=== PATIENT | male | born 1935 | race Hispanic/Latino ===

== ENCOUNTER 2018-09-17 07:11 | Outpatient (CLI) | payer MEDICARE, OTHER | END 2018-09-17 07:12 | disposition home or self-care (01) | LOC: LAB 07:11 ==

== ENCOUNTER 2018-10-21 12:46 | Inpatient (IN) | payer MEDICARE, OTHER ==
[2018-10-21 13:12] VITALS: BMI 33.5
--- NOTE | 2018-10-21 13:55 | ED PDOC ---
Arrival/HPI <Heidy Velasquez - Last Filed: 10/21/18 15:57> - General Historian: Patient - History of Present Illness Narrative History of Present Illness (Text): 10/21/18 13:49 83M pmh CAD s/p CABG, CKD, HTN, Hypothyroidism, R sided heart failure, c/o chest pain + lethargy worsening x3 days. Patient reported mid sternal squeezing chest pain which began 3 days ago. Patient denies any radiation into his L arm or neck; no associated SOB, MCCARTHY. Patient denies worsening of symptoms w/ exertion.. Patient does complain of associated lethargy which has been worsening over the past 3 days as well. Previous Echo was done in 2016 which showed normal EF severe TR, R sided HF, Pulm HTN, . Allergies: NKDA PMH: as above PSH: CABG 2008 Social: Former smoker quit 40 years ago, denies etoh, illicit drug use Home Rx updated in chart Time/Duration: Prior to Arrival, < week Symptom Onset: Gradual Symptom Course: Worsening Quality: Pressure Context: Home <Femi Skinner - Last Filed: 10/21/18 16:35> - General Chief Complaint: Chest Pain Time Seen by Provider: 10/21/18 13:15 Past Medical History - Provider Review Nursing Documentation Reviewed: Yes - Infectious Disease Hx of Infectious Diseases: None - Tetanus Immunization Tetanus Immunization: Unknown - Cardiac Hx Cardiac Arrhythmia: Yes Hx Congestive Heart Failure: Yes Hx Hypertension: Yes - Endocrine/Metabolic Hx Hypothyroidism: Yes - Musculoskeletal/Rheumatological Hx Arthritis: Yes Hx Falls: No - Psychiatric Hx Psychophysiologic Disorder: No Hx Anxiety: No Hx Bipolar Disorder: No Hx Depression: No Hx Emotional Abuse: No Hx Hallucinations: No Hx Panic Disorder: No Hx Post Traumatic Stress Disorder: No Hx Psychosis: No Hx Physical Abuse: No Hx Schizophrenia: No Hx Sexual Abuse: No Hx Substance Use: No - Surgical History Hx Coronary Artery Bypass Graft: Yes - Anesthesia Hx Anesthesia: Yes Hx Anesthesia Reactions: No Hx Malignant Hyperthermia: No - Suicidal Assessment Feels Threatened In Home Enviroment: No <Femi Skinner - Last Filed: 10/21/18 16:35> Family/Social History - Physician Review Nursing Documentation Reviewed: Yes Family/Social History: Unknown Family HX Smoking Status: Former Smoker Hx Alcohol Use: No Hx Substance Use: No <Femi Skinner - Last Filed: 10/21/18 16:35> Allergies/Home Meds <Heidy Velasquez - Last Filed: 10/21/18 15:57> <Femi Skinner - Last Filed: 10/21/18 16:35> Allergies/Adverse Reactions: Allergies No Known Allergies Allergy (Verified 10/21/18 13:12) Home Medications: Home Meds Medication Instructions Recorded Confirmed Aspirin [Aspir 81] 162 mg PO DAILY 09/27/12 10/21/18 Amiodarone [Cordarone] 200 mg PO DAILY 09/16/15 10/21/18 hydrALAZINE [Apresoline] 25 mg PO BID 09/16/15 10/21/18 Finasteride [Proscar] 5 mg PO DAILY 10/21/18 10/21/18 Furosemide [Lasix] 20 mg PO BID 10/21/18 10/21/18 Levothyroxine [Synthroid] 137 mcg PO ACB 10/21/18 10/21/18 Losartan Potassium [Cozaar] 100 mg PO DAILY 10/21/18 10/21/18 Metoprolol Succinate [Toprol Xl] 25 mg PO DAILY 10/21/18 10/21/18 Simvastatin [Zocor] 40 mg PO HS 10/21/18 10/21/18 Tamsulosin HCl [Flomax] 0.4 mg PO DAILY 10/21/18 10/21/18 amLODIPine [Norvasc] 10 mg PO DAILY 10/21/18 10/21/18 metOLazone [Zaroxolyn] 5 mg PO DAILY 10/21/18 10/21/18 Review of Systems - Physician Review All systems were reviewed & negative as marked: Yes - Review of Systems Constitutional: Fatigue Eyes: Normal ENT: Normal Respiratory: Normal Cardiovascular: Chest Pain. absent: MCCARHTY Gastrointestinal: absent: Abdominal Pain, Nausea Genitourinary Male: Normal Musculoskeletal: Normal Skin: Normal Neurological: Normal Endocrine: Normal Hemo/Lymphatic: Normal Psychiatric: Normal <Femi Skinner - Last Filed: 10/21/18 16:35> Physical Exam Vital Signs Temp Pulse Resp BP Pulse Ox 10/21/18 13:08 98.2 F 62 18 137/81 98 <Heidy Velasquez - Last Filed: 10/21/18 15:57> Vital Signs Reviewed: Yes Vital Signs Temp Pulse Resp BP Pulse Ox 10/21/18 13:08 98.2 F 62 18 137/81 98 Temperature: Afebrile Blood Pressure: Normal Pulse: Regular Respiratory Rate: Normal Appearance: Positive for: Well-Appearing, Non-Toxic, Comfortable Pain Distress: None Mental Status: Positive for: Alert and Oriented X 3 - Systems Exam Head: Present: Atraumatic, Normocephalic Pupils: Present: PERRL Extroacular Muscles: Present: EOMI Conjunctiva: Present: Normal Respiratory/Chest: Present: Clear to Auscultation. No: Respiratory Distress Cardiovascular: Present: Regular Rate and Rhythm, Murmurs (), Normal S1, S2 Abdomen: Present: Normal Bowel Sounds. No: Tenderness, Distention Lower Extremity: Present: Edema (3+ Pitting BL ) Neurological: Present: GCS=15, CN II-XII Intact Skin: Present: Warm, Dry, Normal Color Psychiatric: Present: Alert, Oriented x 3 <Femi Skinner - Last Filed: 10/21/18 16:35> Medical Decision Making ED Course and Treatment: 10/21/18 15:57 Patient Seen with Resident: In agreement with resident note which contains more details about the patient. Patient seen and evaluated with resident. Came up with plan and treatment together. Impression: Patient is a 83 year old male complaining of chest pain and fatigue, which started 3 days ago. Plan: -- EKG -- Chest X-ray -- Cardiac enzymes -- Labs -- Blood work -- TSH - Lab Interpretations Lab Results: Troponin I < 0.01 ng/mL D 10/21/18 13:48 NT-Pro-B Natriuret Pep 849 pg/mL (0-450) H 10/21/18 13:48 Total Bilirubin 0.3 mg/dL (0.2-1.3) 10/21/18 13:48 AST 37 U/L (17-59) 10/21/18 13:48 ALT 30 U/L (7-56) 10/21/18 13:48 Alkaline Phosphatase 79 U/L (38-126) 10/21/18 13:48 Total Protein 6.9 g/dL (5.8-8.3) 10/21/18 13:48 Albumin 4.0 g/dL (3.0-4.8) 10/21/18 13:48 Globulin 3.0 gm/dL 10/21/18 13:48 Albumin/Globulin Ratio 1.3 (1.1-1.8) 10/21/18 13:48 - RAD Interpretation Radiology Orders: 10/21/18 13:49 CHEST PORTABLE [RAD] Stat <Heidy Velasquez - Last Filed: 10/21/18 15:57> ED Course and Treatment: 10/21/18 13:51 EKG w/ No ST/T wave abnormalities CXR CBC/CMP TROP TSH LIPID A1C Cardiology Consulted Dr. Gagnon 10/21/18 15:48 Hb 7.2 Trop wnl FOBT+, Melanotic stool TSH elevated BNP elevated will admit to Dr. Han's service for symptomatic anemia in a cardiac patient w/ active GI bleed 10/21/18 15:55 Left message w/ Dr. Han answering service 10/21/18 16:[address] Han who accepts admission; Dr. Han requesting BL LE Duplex, Type and Cross, Transfusion consent, and 10/21/18 16:35 - Lab Interpretations I have reviewed the lab results: Yes - RAD Interpretation Narrative RAD Interpretations (Text): 10/21/18 15:49 No acute cardiopulmonary disease; moderate cardiomegaly Radiology Orders: 10/21/18 13:49 CHEST PORTABLE [RAD] Stat Fixed Assets Accountant: Radiologist - EKG Interpretation EKG Interpretation (Text): 10/21/18 15:49 NSR no AV block HR 66/min Interpreted by ED Physician: Yes Type: 12 lead EKG <Femi Skinner - Last Filed: 10/21/18 16:35> - Scribe Statement The provider has reviewed the documentation as recorded by the Scribe Mark Campbell Provider Scribe Attestation: All medical record entries made by the Scribe were at my direction and personally dictated by me. I have reviewed the chart and agree that the record accurately reflects my personal performance of the history, physical exam, medical decision making, and the department course for this patient. I have also personally directed, reviewed, and agree with the discharge instructions and disposition. <Heidy Velasquez - Last Filed: 10/21/18 15:57> Disposition/Present on Arrival <Heidy Velasquez - Last Filed: 10/21/18 15:57> - Present on Arrival Any Indicators Present on Arrival: No History of DVT/PE: No History of Uncontrolled Diabetes: No Urinary Catheter: No History of Decub. Ulcer: No History Surgical Site Infection Following: None - Disposition Have Diagnosis and Disposition been Completed?: Yes Disposition Time: 15:56 Patient Plan: Admission, Telemetry <Femi Skinner - Last Filed: 10/21/18 16:35> - Disposition Diagnosis: Symptomatic anemia, GI bleed, Right-sided heart failure Patient Problems: Current Active Problems Problem Status Onset Symptomatic anemia Acute GI bleed Acute Right-sided heart failure Acute Condition: STABLE Forms: [employer] (Faroese)
[2018-10-21 14:11] LABS: BASO # 0.02 K/mm3 (0.0-2.0); BASO % 0.2 % (0.0-3.0); EOS % 0.3 % (1.5-5.0); HEMOGLOBIN 7.2 g/dL (14.0-18.0); LYMPH # 1.2 (1.2-3.4); LYMPH % 10.6 % (22.0-35.0); MEAN CELL VOLUME 93.5 fl (80.0-105.0); MEAN CORPUSCULAR HEMOGLOBIN 31.2 pg (25.0-35.0); MEAN CORPUSCULAR HGB CONC 33.3 g/dl (31.0-37.0); MEAN PLATELET VOLUME 9.4 fl (7.0-11.0); MONO # 1.4 (0.1-0.6); MONO % 12.1 % (1.0-6.0); RBC 2.31 10^6/uL (3.5-6.1); RED CELL DISTRIBUTION WIDTH 15.5 % (11.5-14.5); WHITE BLOOD COUNT 11.5 10^3/uL (4.5-11.0)
[2018-10-21 14:16] LABS: ALB/GLOB RATIO 1.3 (1.1-1.8); ALT/SGPT 30 U/L (7-56); AST/SGOT 37 U/L (17-59); BLOOD UREA NITROGEN 50 mg/dL (7-21); CALCIUM 8.7 mg/dL (8.4-10.5); GFR NON-AFRICAN AMERICAN 26; HDL CHOLESTEROL 44 mg/dL (29-60)
--- NOTE | 2018-10-21 14:26 | RAD ---
Date of service: 10/21/2018 HISTORY: chest pain COMPARISON: 09/16/2015 FINDINGS: LUNGS: No active pulmonary disease. PLEURA: No significant pleural effusion identified, no pneumothorax apparent. CARDIOVASCULAR: Aortic calcification Moderate cardiomegaly no pulmonary vascular congestion. OSSEOUS STRUCTURES: Sternal wires VISUALIZED UPPER ABDOMEN: Normal. OTHER FINDINGS: None. IMPRESSION: Moderate cardiomegaly
[2018-10-21 14:29] LABS: LDL CHOLESTEROL 46 mg/dL (0-129)
[2018-10-21 14:38] LABS: B-TYPE NATRIURETIC PEPTIDE 849 pg/mL (0-450); TROPONIN I < 0.01 ng/mL
--- NOTE | 2018-10-21 15:48 | CP.PCM.HP ---
History of Present Illness - History of Present Illness History of Present Illness: Giorgio Cavazos, PGY1 H&P for Dr. Han cc: "chest pain + weakness x3 days" Patient is a 83 y/o M with PMHx CAD s/p CABG, CKD, HTN, Hypothyroidism, CHF-pEF (EF 71% in 2016), BPH who presented to the ED for chest pain and weakness for 3 days in duration. In the ED, Vitals: Temp 98.2, HR 62, RR 18, BP 137/81, SaO2 98% (room air). Medical team evaluated patient in the ED. rug inspector was used for the patient, however, patient was refusing to use it. He is not a good historian. He said he would rather have his translate. Patient was having mid-sternal squeezing chest pain that started 3 days ago. It was not associated with exertion. Patient denied radiation of pain to the arms, neck, or back. He has no associated shortness of breath or dyspnea. Associated symptoms is weakness. Denies recent travel history. No sick contacts. He denies nausea, vomiting, diarrhea, abdominal pain, urinary frequency/urgency/dysuria, fevers, chills. A full 12 point ROS was conducted and unremarkable except as stated above. PMD: Dr. Chua PMHx: CAD s/p CABG, CKD, HTN, Hypothyroidism, CHF-pEF (EF 71% in 2016), BPH PSHx: CABG (2008) Meds: see MAR Allergies: NKDA SocialHx: Former smoker quit 40 years ago, denies etoh, illicit drug use FamHx: non-contributory Present on Admission - Present on Admission Any Indicators Present on Admission: No Review of Systems - Review of Systems All systems: reviewed and no additional remarkable complaints except (as per HPI) Past Patient History - Infectious Disease Hx of Infectious Diseases: None - Tetanus Immunizations Tetanus Immunization: Unknown - Past Medical History & Family History Past Medical History?: Yes - Past Social History Smoking Status: Former Smoker - CARDIAC Hx Cardia Arrhythmia: Yes Hx Congestive Heart Failure: Yes Hx Hypertension: Yes - ENDOCRINE/METABOLIC Hx Hypothyroidism: Yes - MUSCULOSKELETAL/RHEUMATOLOGICAL Hx Arthritis: Yes Hx Falls: No - PSYCHIATRIC Hx Psychophysiologic Disorder: No Hx Anxiety: No Hx Bipolar Disorder: No Hx Depression: No Hx Emotional Abuse: No Hx Hallucinations: No Hx Panic Symptoms: No Hx Post Traumatic Stress Disorder: No Hx Psychosis: No Hx Physical Abuse: No Hx Schizophrenia: No Hx Sexual Abuse: No Hx Substance Use: No - SURGICAL HISTORY Hx Coronary Artery Bypass Graft: Yes - ANESTHESIA Hx Anesthesia: Yes Hx Anesthesia Reactions: No Hx Malignant Hyperthermia: No Meds Allergies/Adverse Reactions: Allergies Allergy/AdvReac Type Severity Reaction Status Date / Time No Known Allergies Allergy Verified 10/21/18 13:12 Physical Exam - Constitutional Appears: No Acute Distress - Head Exam Head Exam: ATRAUMATIC, NORMAL INSPECTION, NORMOCEPHALIC - Eye Exam Eye Exam: EOMI, Normal appearance Pupil Exam: NORMAL ACCOMODATION - ENT Exam ENT Exam: Mucous Membranes Moist, Normal Exam - Respiratory Exam Respiratory Exam: Clear to Auscultation Bilateral, NORMAL BREATHING PATTERN. absent: Accessory Muscle Use, Chest Wall Tenderness, Rales, Rhonchi, Wheezes - Cardiovascular Exam Cardiovascular Exam: REGULAR RHYTHM, +S1, +S2 - GI/Abdominal Exam GI & Abdominal Exam: Normal Bowel Sounds, Soft. absent: Guarding, Rebound, Tenderness - Rectal Exam Additional comments: Melena noted on rectal exam. - Extremities Exam Extremities exam: Positive for: normal inspection, pedal pulses present. Neg ative for: calf tenderness Additional comments: +1 pitting edema bilaterally. Mild swelling of bilateral lower extremities. - Neurological Exam Neurological exam: Alert, CN II-XII Intact, Oriented x3 - Psychiatric Exam Psychiatric exam: Normal Affect, Normal Mood - Skin Skin Exam: Dry, Intact, Normal Color, Warm Results - Vital Signs Recent Vital Signs: Last Vital Signs Temp 98.2 F 10/21/18 13:08 Pulse 62 10/21/18 13:08 Resp 18 10/21/18 13:08 BP 137/81 10/21/18 13:08 Pulse Ox 98 10/21/18 13:08 - Labs Result Diagrams: 10/21/18 13:48 10/21/18 13:48 Labs: Laboratory Results - last 24 hr 10/21/18 10/21/18 10/21/18 13:48 13:48 13:48 WBC 11.5 H D RBC 2.31 L Hgb 7.2 L D Hct 21.6 L MCV 93.5 MCH 31.2 MCHC 33.3 RDW 15.5 H Plt Count 371 MPV 9.4 Neut % (Auto) 76.8 H Lymph % (Auto) 10.6 L [place] % (Auto) 12.1 H Eos % (Auto) 0.3 L Baso % (Auto) 0.2 Lymph # (Auto) 1.2 [place] # (Auto) 1.4 H Eos # (Auto) 0.0 Baso # (Auto) 0.02 Absolute Neuts (auto) 8.79 H Sodium 135 Potassium 3.9 Chloride 104 Carbon Dioxide 22 Anion Gap 12 BUN 50 H Creatinine 2.4 H Est GFR ( Amer) 32 Est GFR (Non-Af Amer) 26 Random Glucose 151 H Calcium 8.7 Phosphorus 3.8 Magnesium 2.3 H Total Bilirubin 0.3 AST 37 ALT 30 Alkaline Phosphatase 79 Troponin I < 0.01 D NT-Pro-B Natriuret Pep 849 H Total Protein 6.9 Albumin 4.0 Globulin 3.0 Albumin/Globulin Ratio 1.3 Triglycerides 81 Cholesterol 107 L LDL Cholesterol Direct 46 HDL Cholesterol 44 TSH 3rd Generation 6.34 H Assessment & Plan - Assessment and Plan (Free Text) Assessment: Patient is a 83 y/o M with PMHx CAD s/p CABG, CKD, HTN, Hypothyroidism, CHF-pEF (EF 71% in 2016), BPH who presented to the ED for chest pain and weakness for 3 days in duration. Patient admitted for chest pain - r/o ACS, Symptomatic Anemia, and MIGUEL on CKD. Plan: Chest Pain - r/o ACS - initial trop negative x1; trend q6 - EKG: NSR. No ST or T wave changes. - Cardio on consult (Dr. Gagnon) - Echo - Venous LE doppler ordered to r/o DVT - c/w ASA 81mg daily home med - serial EKG Symptomatic Anemia - r/o GI bleed - vital signs q4 - orthostatic vital signs - PTX IVP q12 - trend cbc q4 - transfuse x1 unit pRBC - CT Chest/Abdomen/Pelvis w/o contrast ordered - Hgb 7.2 on admission (baseline 10.6) - FOBT+ - Full liquid diet - coag studies - GI consulted (Dr. Wood) MIGUEL on CKD - BUN/Cr 50/2.4 (Cr baseline is 2.2) - Renal US and Bladder US; r/o obstruction - PSA level - Bladder scan q6 with straight cath - Nephro consulted (Dr. Arzate) Hx CHF-pEF - Lasix home med held at this time Hx HTN - c/w hydralazine home med - c/w metoprolol home med - Norvasc home med held at this time - Losartan home med held at this time Hx Hypothyroidism - c/w home med synthroid - TSH level 6.34 - free T4 - Total T4 ordered Hx HLD - c/w home med simvastatin Hx CAD s/p CABG - c/w aspirin daily Hx BPH - c/w flomax and finasteride home med GI ppx: ptx IV q12 Diet: full liquid Dispo: Patient should receive x1 pRBC blood transfusion. Patient should be managed on telemetry. Case was discussed and reviewed with Attending Physician, Dr. Han
[2018-10-21 17:17] LABS: INR 1.09; PARTIAL THROMBOPLASTIN TIME 30.3 Seconds (26.9-38.3); PROTHROMBIN TIME 12.1 SECONDS (9.4-12.5)
[2018-10-21 18:58] LABS: IRON 27 ug/dL (45-180)
[2018-10-21 19:07] LABS: % IRON SATURATION 8 % (20-55); TOTAL IRON BINDING CAPACITY 352 ug/dL (261-462)
[2018-10-21 19:23] LABS: FREE T4 1.73 ng/dL (0.78-2.19)
[2018-10-21 19:46] LABS: T4 8.4 ug/dL (5.5-11.0)
[2018-10-22 00:25] LABS: HEMOGLOBIN 7.8 g/dL (14.0-18.0); MEAN CELL VOLUME 92.2 fl (80.0-105.0); MEAN CORPUSCULAR HEMOGLOBIN 30.5 pg (25.0-35.0); MEAN CORPUSCULAR HGB CONC 33.1 g/dl (31.0-37.0); MEAN PLATELET VOLUME 8.6 fl (7.0-11.0); RBC 2.56 10^6/uL (3.5-6.1); RED CELL DISTRIBUTION WIDTH 16.2 % (11.5-14.5); WHITE BLOOD COUNT 11.4 10^3/uL (4.5-11.0)
[2018-10-22 07:03] LABS: HEMOGLOBIN 7.3 g/dL (14.0-18.0); MEAN CELL VOLUME 92.1 fl (80.0-105.0); MEAN CORPUSCULAR HEMOGLOBIN 30.3 pg (25.0-35.0); MEAN CORPUSCULAR HGB CONC 32.9 g/dl (31.0-37.0); MEAN PLATELET VOLUME 9.1 fl (7.0-11.0); RBC 2.41 10^6/uL (3.5-6.1); RED CELL DISTRIBUTION WIDTH 16.7 % (11.5-14.5); WHITE BLOOD COUNT 10.8 10^3/uL (4.5-11.0)
--- NOTE | 2018-10-22 07:20 | CARD ---
APPROVED REPORT Date of service: 10/21/2018 EKG Measurement Heart [id number] <Conclusion> Sinus rhythm with first degree AV block Inferior infarct, age undetermined Abnormal ECG
--- NOTE | 2018-10-22 07:26 | CARD ---
APPROVED REPORT Date of service: 10/21/2018 EKG Measurement Heart [id number] <Conclusion> Sinus rhythm with 1st degree AV block Cannot rule out Anterior infarct, age undetermined Abnormal ECG
[2018-10-22] MEDS ORDERED: Levothyroxine 100 MCG TAB PO SCH (07:30)
[2018-10-22 07:34] LABS: ALB/GLOB RATIO 1.3 (1.1-1.8); ALBUMIN 3.6 g/dL (3.0-4.8); CALCIUM 8.8 mg/dL (8.4-10.5)
[2018-10-22] MEDS: Levothyroxine 150 MCG TAB PO SCH (07:55)
[2018-10-22] MEDS ORDERED: Lactated Ringer's 1,000 ML IV SCH (08:15)
--- NOTE | 2018-10-22 08:15 | CP.PCM.PN ---
Subjective - Date & Time of Evaluation Date of Evaluation: 10/22/18 Time of Evaluation: 08:08 - Subjective Subjective: PGY-[address] Han CP resolved. Dizzy when change position. Dark stool for > 1 week. No other acute complaint per 12 pt ROS Objective - Vital Signs/Intake and Output Vital Signs (last 24 hours): Temp Pulse Resp BP Pulse Ox 97.5 F L 56 L 20 118/58 L 100 10/22/18 06:00 10/22/18 06:00 10/22/18 06:00 10/22/18 06:00 10/22/18 06:00 Intake and Output: 10/22/18 10/22/18 06:59 18:59 Intake Total 360 Balance 360 - Medications Medications: Current Medications Amiodarone HCl (Cordarone) 200 mg PO DAILY [facility] Atorvastatin Calcium (Lipitor) 20 mg PO DIN [facility] Finasteride (Proscar) 5 mg PO DAILY [facility] Hydralazine HCl (Apresoline) 25 mg PO BID [facility] Last Admin: 10/21/18 18:50 Dose: 25 mg Lactated Ringer's (Lactated Ringer's) 1,000 mls @ 75 mls/hr IV .[id number] [facility] Levothyroxine Sodium (Synthroid) 150 mcg PO ACB [facility] Last Admin: 10/22/18 07:55 Dose: 150 mcg Metoprolol Succinate (Toprol Xl) 25 mg PO DAILY [facility] Pantoprazole Sodium (Protonix Inj) 40 mg IVP Q12 [facility] Last Admin: 10/22/18 00:19 Dose: 40 mg Tamsulosin HCl (Flomax) 0.4 mg PO DAILY [facility] - Labs Labs: 10/22/18 06:30 10/22/18 06:30 PT 12.1 SECONDS (9.4-12.5) 10/21/18 17:04 INR 1.09 10/21/18 17:04 APTT 30.3 Seconds (26.9-38.3) 10/21/18 17:04 - Constitutional Appears: No Acute Distress, Other (pale) - Head Exam Head Exam: ATRAUMATIC, NORMAL INSPECTION, NORMOCEPHALIC - Eye Exam Eye Exam: EOMI, Normal appearance, PERRL. absent: Scleral icterus Pupil Exam: NORMAL ACCOMODATION - ENT Exam ENT Exam: Mucous Membranes Moist - Neck Exam Additional comments: supple - Respiratory Exam Respiratory Exam: Clear to Ausculation Bilateral, NORMAL BREATHING PATTERN. absent: Rales, Rhonchi, Wheezes - Cardiovascular Exam Cardiovascular Exam: REGULAR RHYTHM, +S1, +S2, Murmur - GI/Abdominal Exam GI & Abdominal Exam: Soft, Normal Bowel Sounds. absent: Guarding, Rigid, Tenderness, Organomegaly - Extremities Exam Extremities Exam: Normal Capillary Refill. absent: Calf Tenderness, Pedal Kuldip ma, Tenderness - Back Exam Back Exam: absent: CVA tenderness (L), CVA tenderness (R), paraspinal tenderness - Neurological Exam Neurological Exam: Alert, Awake, CN II-XII Intact, Normal Gait, Oriented x3 - Psychiatric Exam Psychiatric exam: Normal Affect, Normal Mood - Skin Skin Exam: Dry, Warm Assessment and Plan - Assessment and Plan (Free Text) Plan: Mr Cao, 83 M, with PMHx CAD s/p CABG (2009), CHF-pEF (EF 71% in 2016), HTN, CKD, hypothyroidism, BPH c/o mild substernal chest pain x 3 days and weakness. Hb found to be in 7 on admission. Dark stool recently for more than 1 week. Never seen GI doc. VSS. , Kiera ([phone]) translated. Chest Pain - r/o ACS Hx CAD s/p CABG, HLD/HTN CHF, diastolic - trops neg x 3. EKG: NSR. No ST or T wave changes. serial EKG did not show significant changes [ ] Echo - done. pending read - Venous LE doppler ordered to r/o DVT - Hold ASA for GI bleed - c/w home hydralazine, metoprolol. Hold Norvasc, Losartan, lasix due to MIGUEL Symptomatic Anemia (7 on admission, remained at 7 despite 1u rbc, 10.6 at baseline) Iron deficiency anemia GI bleed, getting 2nd bag pRBC. FOBT+ - No plan for scope today due to low Hb. Plan for endoscopy Thursday - continue to transfuse with Hb goal of 9-10 - vital signs q4. H&H q4, strict i/.o [ ] orthostatic vital signs - PTX IVP q12 - Liquid diet per GI - CT Chest/Abdomen/Pelvis w/o contrast -No acute pathology. mild to moderate pulmonary vascular congestion. trace R pleural effusion. MIGUEL on CKD - BUN/Cr 50/2.4 (Cr baseline is 2.2) - Renal US - increased echogenicity likely medical renal disease. No hydronephrosis - Bladder US - Post-void residual 39.4cc is normal but markedly increase from previous 2.49cc - PSA normal - Bladder scan q6 with straight cath PRN - Nephro consulted (Dr. Arzate) Hx Hypothyroidism - c/w home med synthroid. TSH/free T4 wnl Hx BPH - c/w flomax and finasteride home med GI ppx: ptx IV q12 Diet: NPO Consult: Carito Velázquez, Nina
--- NOTE | 2018-10-22 08:29 | CP.PCM.HP ---
History of Present Illness - History of Present Illness History of Present Illness: (covering for Dr. Han) This is an 83 year old male with history of CAD s/p CABG, chronic kidney disease, hypertension, hypothyroidism, congestive heart failure, benign prostatic hypertrophy, who presented to the Emergency Room with chest pain for about 3 days. Patient has mid-sternal squeezing chest pain with no radiation. Patient denies chest pain this morning. He also complains of weakness for about 3 days. Present on Admission - Present on Admission Any Indicators Present on Admission: No History of DVT/PE: No History of Uncontrolled Diabetes: No Urinary Catheter: No Decubitus Ulcer Present: No Review of Systems - Constitutional Constitutional: absent: Chills, Fever, Headache - Cardiovascular Cardiovascular: As Per HPI - Gastrointestinal Gastrointestinal: absent: Abdominal Pain, Nausea, Vomiting Past Patient History - Infectious Disease Hx of Infectious Diseases: None - Tetanus Immunizations Tetanus Immunization: Unknown - Past Medical History & Family History Past Medical History?: Yes - Past Social History Smoking Status: Never Smoked - CARDIAC Hx Cardiac Disorders: Yes Hx Hypercholesterolemia: Yes Other/Comment: Hypotension - PULMONARY Hx Respiratory Disorders: No - NEUROLOGICAL Hx Neurological Disorder: No - HEENT Hx HEENT Problems: No - RENAL Hx Chronic Kidney Disease: Yes - ENDOCRINE/METABOLIC Hx Endocrine Disorders: No - HEMATOLOGICAL/ONCOLOGICAL Hx Blood Disorders: No - INTEGUMENTARY Hx Dermatological Problems: No - MUSCULOSKELETAL/RHEUMATOLOGICAL Hx Musculoskeletal Disorders: No Hx Falls: No - GASTROINTESTINAL Hx Gastrointestinal Disorders: No - GENITOURINARY/GYNECOLOGICAL Hx Genitourinary Disorders: No - PSYCHIATRIC Hx Psychophysiologic Disorder: No Hx Substance Use: No - SURGICAL HISTORY Hx Surgeries: No Hx Open Heart Surgery: Yes - ANESTHESIA Hx Anesthesia: Yes Hx Anesthesia Reactions: No Hx Malignant Hyperthermia: No Meds Allergies/Adverse Reactions: Allergies Allergy/AdvReac Type Severity Reaction Status Date / Time No Known Allergies Allergy Verified 10/21/18 13:12 Physical Exam - Constitutional Appears: No Acute Distress - Head Exam Head Exam: ATRAUMATIC, NORMOCEPHALIC - Respiratory Exam Respiratory Exam: Clear to Auscultation Bilateral, NORMAL BREATHING PATTERN - Cardiovascular Exam Cardiovascular Exam: REGULAR RHYTHM, +S1, +S2 - GI/Abdominal Exam GI & Abdominal Exam: Normal Bowel Sounds, Soft. absent: Tenderness - Neurological Exam Neurological exam: Alert, CN II-XII Intact, Oriented x3 Results - Vital Signs Recent Vital Signs: Last Vital Signs Temp 97.5 F L 10/22/18 06:00 Pulse 56 L 10/22/18 06:00 Resp 20 10/22/18 06:00 BP 118/58 L 10/22/18 06:00 Pulse Ox 100 10/22/18 06:00 - Labs Result Diagrams: 10/22/18 06:30 10/22/18 06:30 Labs: Laboratory Results - last 24 hr 10/21/18 10/21/18 10/21/18 13:48 13:48 13:48 WBC 11.5 H D RBC 2.31 L Hgb 7.2 L D Hct 21.6 L MCV 93.5 MCH 31.2 MCHC 33.3 RDW 15.5 H Plt Count 371 MPV 9.4 Neut % (Auto) 76.8 H Lymph % (Auto) 10.6 L Jay % (Auto) 12.1 H Eos % (Auto) 0.3 L Baso % (Auto) 0.2 Lymph # (Auto) 1.2 Jay # (Auto) 1.4 H Eos # (Auto) 0.0 Baso # (Auto) 0.02 Absolute Neuts (auto) 8.79 H Retic Count PT INR APTT Sodium 135 Potassium 3.9 Chloride 104 Carbon Dioxide 22 Anion Gap 12 BUN 50 H Creatinine 2.4 H Est GFR ( Amer) 32 Est GFR (Non-Af Amer) 26 Random Glucose 151 H Hemoglobin A1c 6.1 Calcium 8.7 Phosphorus 3.8 Magnesium 2.3 H Iron TIBC % Saturation Total Bilirubin 0.3 AST 37 ALT 30 Alkaline Phosphatase 79 Troponin I < 0.01 D NT-Pro-B Natriuret Pep 849 H Total Protein 6.9 Albumin 4.0 Globulin 3.0 Albumin/Globulin Ratio 1.3 Triglycerides 81 Cholesterol 107 L LDL Cholesterol Direct 46 HDL Cholesterol 44 Prostate Specific Ag Free T4 Thyroxine (T4) TSH 3rd Generation Blood Type Blood Type Confirm Antibody Screen Crossmatch BBK History Checked 10/21/18 10/21/18 10/21/18 13:48 13:48 13:48 WBC RBC Hgb Hct MCV MCH MCHC RDW Plt Count MPV Neut % (Auto) Lymph % (Auto) Jay % (Auto) Eos % (Auto) Baso % (Auto) Lymph # (Auto) Jay # (Auto) Eos # (Auto) Baso # (Auto) Absolute Neuts (auto) Retic Count PT INR APTT Sodium Potassium Chloride Carbon Dioxide Anion Gap BUN Creatinine Est GFR ( Amer) Est GFR (Non-Af Amer) Random Glucose Hemoglobin A1c Calcium Phosphorus Magnesium Iron 27 L TIBC 352 % Saturation 8 L Total Bilirubin AST ALT Alkaline Phosphatase Troponin I NT-Pro-B Natriuret Pep Total Protein Albumin Globulin Albumin/Globulin Ratio Triglycerides Cholesterol LDL Cholesterol Direct HDL Cholesterol Prostate Specific Ag Free T4 1.73 Thyroxine (T4) TSH 3rd Generation 6.34 H Blood Type Blood Type Confirm Antibody Screen Crossmatch BBK History Checked 10/21/18 10/21/18 10/21/18 17:04 18:17 18:17 WBC RBC Hgb Hct MCV MCH MCHC RDW Plt Count MPV Neut % (Auto) Lymph % (Auto) Jay % (Auto) Eos % (Auto) Baso % (Auto) Lymph # (Auto) Jay # (Auto) Eos # (Auto) Baso # (Auto) Absolute Neuts (auto) Retic Count 5.00 H PT 12.1 INR 1.09 APTT 30.3 Sodium Potassium Chloride Carbon Dioxide Anion Gap BUN Creatinine Est GFR ( Amer) Est GFR (Non-Af Amer) Random Glucose Hemoglobin A1c Calcium Phosphorus Magnesium Iron TIBC % Saturation Total Bilirubin AST ALT Alkaline Phosphatase Troponin I 0.01 NT-Pro-B Natriuret Pep Total Protein Albumin Globulin Albumin/Globulin Ratio Triglycerides Cholesterol LDL Cholesterol Direct HDL Cholesterol Prostate Specific Ag Free T4 Thyroxine (T4) TSH 3rd Generation Blood Type Blood Type Confirm Antibody Screen Crossmatch BBK History Checked 10/21/18 10/21/18 10/21/18 18:17 18:17 18:43 WBC RBC Hgb Hct MCV MCH MCHC RDW Plt Count MPV Neut % (Auto) Lymph % (Auto) Jay % (Auto) Eos % (Auto) Baso % (Auto) Lymph # (Auto) Jay # (Auto) Eos # (Auto) Baso # (Auto) Absolute Neuts (auto) Retic Count PT INR APTT Sodium Potassium Chloride Carbon Dioxide Anion Gap BUN Creatinine Est GFR ( Amer) Est GFR (Non-Af Amer) Random Glucose Hemoglobin A1c Calcium Phosphorus Magnesium Iron TIBC % Saturation Total Bilirubin AST ALT Alkaline Phosphatase Troponin I NT-Pro-B Natriuret Pep Total Protein Albumin Globulin Albumin/Globulin Ratio Triglycerides Cholesterol LDL Cholesterol Direct HDL Cholesterol Prostate Specific Ag 0.7 Free T4 Thyroxine (T4) 8.4 TSH 3rd Generation Blood Type AB POSITIVE Blood Type Confirm AB POSITIVE Antibody Screen Negative Crossmatch See Detail BBK History Checked No verified bt 10/22/18 10/22/18 10/22/18 00:15 00:55 06:30 WBC 11.4 H RBC 2.56 L Hgb 7.8 L Hct 23.6 L MCV 92.2 MCH 30.5 MCHC 33.1 RDW 16.2 H Plt Count 321 MPV 8.6 Neut % (Auto) Lymph % (Auto) Jay % (Auto) Eos % (Auto) Baso % (Auto) Lymph # (Auto) Jay # (Auto) Eos # (Auto) Baso # (Auto) Absolute Neuts (auto) Retic Count PT INR APTT Sodium 142 Potassium 4.1 Chloride 113 H Carbon Dioxide 25 Anion Gap 8 L BUN 37 H Creatinine 2.0 H Est GFR ( Amer) 39 Est GFR (Non-Af Amer) 32 Random Glucose 95 Hemoglobin A1c Calcium 8.8 Phosphorus 3.7 Magnesium 2.5 H Iron TIBC % Saturation Total Bilirubin 0.5 AST 38 ALT 28 Alkaline Phosphatase 68 Troponin I < 0.01 NT-Pro-B Natriuret Pep Total Protein 6.2 Albumin 3.6 Globulin 2.7 Albumin/Globulin Ratio 1.3 Triglycerides Cholesterol LDL Cholesterol Direct HDL Cholesterol Prostate Specific Ag Free T4 Thyroxine (T4) TSH 3rd Generation Blood Type Blood Type Confirm Antibody Screen Crossmatch BBK History Checked 10/22/18 06:30 WBC 10.8 RBC 2.41 L Hgb 7.3 L Hct 22.2 L MCV 92.1 MCH 30.3 MCHC 32.9 RDW 16.7 H Plt Count 338 MPV 9.1 Neut % (Auto) Lymph % (Auto) Jay % (Auto) Eos % (Auto) Baso % (Auto) Lymph # (Auto) Jay # (Auto) Eos # (Auto) Baso # (Auto) Absolute Neuts (auto) Retic Count PT INR APTT Sodium Potassium Chloride Carbon Dioxide Anion Gap BUN Creatinine Est GFR ( Amer) Est GFR (Non-Af Amer) Random Glucose Hemoglobin A1c Calcium Phosphorus Magnesium Iron TIBC % Saturation Total Bilirubin AST ALT Alkaline Phosphatase Troponin I NT-Pro-B Natriuret Pep Total Protein Albumin Globulin Albumin/Globulin Ratio Triglycerides Cholesterol LDL Cholesterol Direct HDL Cholesterol Prostate Specific Ag Free T4 Thyroxine (T4) TSH 3rd Generation Blood Type Blood Type Confirm Antibody Screen Crossmatch BBK History Checked Assessment & Plan - Assessment and Plan (Free Text) Assessment: Symptomatic anemia Chest pain HTN CKD CAD s/p CABG Hypothyroidism CHF BPH Plan: Patient's hemoglobin was 7.2 on admission in the emergency room. Despite receiving 1 unit packed red blood cells yesterday, hemoglobin is 7.3 this morning. Case was discussed with Dr. Wood who was going to take the patient for endoscopy this morning, but due to the low hemoglobin, endoscopy cannot be done today. Will continue to transfuse patient to goal hemoglobin of 9-10. Endoscopy to be scheduled for Thursday. We will continue Protonix. Patient will have cardiac evaluation by Dr. Gagnon and echocardiogram is pending. CT chest/abd/pelvis and ultrasound of the kidney and bladder have been done; reports are pending. Patient will also be seen by nephrology for chronic kidney disease.
--- NOTE | 2018-10-22 09:46 | CT ---
Date of service: 10/22/2018 PROCEDURE: CT Chest, Abdomen and Pelvis without intravenous contrast HISTORY: r/o GI bleed COMPARISON: Comparison is made with the previous CT of the abdomen and pelvis dated 03/22/[address] of the chest dated 09/17/2015 TECHNIQUE: Radiation dose: Total exam DLP = 1155.97 mGy-cm. This CT exam was performed using one or more of the following dose reduction techniques: Automated exposure control, adjustment of the mA and/or kV according to patient size, and/or use of iterative reconstruction technique. FINDINGS: CT CHEST WITHOUT CONTRAST: LUNGS: [id number] pulmonary vascular congestion is noted. No evidence of consolidation or pneumonia. MEDIASTINUM: The thoracic aorta is ectatic and tortuous. The main pulmonary artery is mildly to moderately enlarged. The heart is mildly to moderately enlarged. LYMPH NODES: Unremarkable. PLEURA: Trace right pleural effusion. No evidence of pneumothorax. BONES: Unremarkable. OTHER FINDINGS: None. CT ABDOMEN AND PELVIS: LIVER: Unremarkable. No gross lesion or ductal dilatation. GALLBLADDER AND BILE DUCTS: Unremarkable. PANCREAS: Unremarkable. No gross lesion or ductal dilatation. SPLEEN: Unremarkable. ADRENALS: Unremarkable. No mass. KIDNEYS AND URETERS: Again noted right renal cyst. No hydronephrosis. No solid mass. VASCULATURE: No aortic atherosclerotic calcification or mural plaque present. Foci of atherosclerotic calcification are again noted in the abdominal and pelvic arteries. BOWEL: Unremarkable. No obstruction. No gross mural thickening. APPENDIX: There is no evidence of appendicitis. PERITONEUM: Unremarkable. No free fluid. No free air. LYMPH NODES: Unremarkable. No enlarged lymph nodes. BLADDER: Unremarkable. REPRODUCTIVE: Unremarkable. BONES: No acute fracture. OTHER FINDINGS: None. IMPRESSION: No evidence of acute pathology in the chest abdomen and pelvis. Moderate cardiomegaly. [id number] pulmonary vascular congestion. Trace right pleural effusion. Suboptimal evaluation of the abdomen and pelvis without IV and oral contrast administration.
[2018-10-22] MEDS ORDERED: Metoprolol Succinate 25 mg XL Tab PO SCH (10:00)
--- NOTE | 2018-10-22 10:15 | US ---
HISTORY: Leg pain and swelling. Evaluate for DVT PHYSICIAN(S): Rod Lopez MD. TECHNIQUE: Duplex sonography and color-flow Doppler with graded compression were used to evaluate the deep venous systems of both lower extremities. FINDINGS: The visualized deep venous systems of both lower extremities are sonographically normal and compressible. Normal wave forms and augmentation are seen. There is no sonographic evidence for deep venous thrombosis in the visualized segments of both lower extremities. IMPRESSION: No sonographic evidence for deep venous thrombosis in the visualized segments of both lower extremities.
--- NOTE | 2018-10-22 10:36 | US ---
Date of service: 10/21/2018 PROCEDURE: Ultrasound of the Kidneys HISTORY: MIGUEL on CKD COMPARISON: Comparison is made with the previous study dated 02/23/2018. TECHNIQUE: Sonogram of the kidneys. FINDINGS: RIGHT KIDNEY: Measures: 12.7 x 5.6 x 5.811 cm. [id number] increased echogenicity of the right kidney is noted. Again noted are low-attenuation cortical cyst in the right kidney with the largest cyst measures 3.5 centimeter. No evidence of hydronephrosis. LEFT KIDNEY: Measures: 10.95 x 4.8 x 5.6 centimeter cm. Mild increased echogenicity of the left kidney is also noted. There is low-attenuation cyst in the midpole of the left kidney measures 1 centimeter. No evidence of hydronephrosis. OTHER FINDINGS: None. IMPRESSION: Increased echogenicity of the kidneys suggestive of medical renal disease. No evidence of hydronephrosis.
--- NOTE | 2018-10-22 10:43 | US ---
Date of service: 10/21/2018 PROCEDURE: Ultrasound of the Bladder HISTORY: r/o obstruction COMPARISON: Comparison is made to the previous study dated 02/23/2018 TECHNIQUE: Sonographic evaluation of the bladder was performed. FINDINGS: Unremarkable without wall thickening or intraluminal debris. No calculus or gross mass lesion. No free fluid in pelvis. Prevoid Volume: 358.6 cc. Post void residual: 39.4 cc. IMPRESSION: The measures postvoid residual in the bladder is 39.4 mL(was 2.49 mL in the previous study ).
--- NOTE | 2018-10-22 11:20 | CP.PCM.APN ---
Subjective - Date & Time of Evaluation Date of Evaluation: 10/22/18 Time of Evaluation: 11:15 - Subjective Subjective: pt seen and examined at bedside, pt with 2nd unit blood transfusion in progress, pt offers no additional complaints at this time Review of Systems - Review of Systems All systems: reviewed and no additional remarkable complaints except - Constitutional Constitutional: As Per HPI Objective - Vital Signs/Intake and Output Vital Signs (last 24 hours): Temp Pulse Resp BP Pulse Ox 97.9 F 55 L 18 134/68 100 10/22/18 08:30 10/22/18 10:56 10/22/18 08:30 10/22/18 10:56 10/22/18 06:00 Intake and Output: 10/22/18 10/22/18 06:59 18:59 Intake Total 360 Balance 360 - Medications Medications: Current Medications Amiodarone HCl (Cordarone) 200 mg PO DAILY [facility] Last Admin: 10/22/18 10:56 Dose: 200 mg Atorvastatin Calcium (Lipitor) 20 mg PO DIN [facility] Finasteride (Proscar) 5 mg PO DAILY [facility] Last Admin: 10/22/18 10:56 Dose: 5 mg Hydralazine HCl (Apresoline) 25 mg PO BID [facility] Last Admin: 10/22/18 10:56 Dose: 25 mg Lactated Ringer's (Lactated Ringer's) 1,000 mls @ 75 mls/hr IV .[id number] [facility] Levothyroxine Sodium (Synthroid) 150 mcg PO ACB [facility] Last Admin: 10/22/18 07:55 Dose: 150 mcg Pantoprazole Sodium (Protonix Inj) 40 mg IVP Q12 [facility] Last Admin: 10/22/18 00:19 Dose: 40 mg Tamsulosin HCl (Flomax) 0.4 mg PO DAILY [facility] - Labs Labs: 10/22/18 06:30 10/22/18 06:30 PT 12.1 SECONDS (9.4-12.5) 10/21/18 17:04 INR 1.09 10/21/18 17:04 APTT 30.3 Seconds (26.9-38.3) 10/21/18 17:04 - Constitutional Appears: No Acute Distress - Head Exam Head Exam: NORMOCEPHALIC - Eye Exam Pupil Exam: NORMAL ACCOMODATION - Respiratory Exam Respiratory Exam: Decreased Breath Sounds, NORMAL BREATHING PATTERN - Cardiovascular Exam Cardiovascular Exam: +S1, +S2 - GI/Abdominal Exam GI & Abdominal Exam: Soft, Normal Bowel Sounds - Extremities Exam Extremities Exam: Normal Capillary Refill - Neurological Exam Neurological Exam: Alert, Awake - Psychiatric Exam Psychiatric exam: Normal Affect, Normal Mood - Skin Skin Exam: Dry, Intact Assessment and Plan - Assessment and Plan (Free Text) Plan: 83 yr old male with pmh sig for cads/p cabg, ckd, htn, diastolic heart failure, ex-smoker, hypothyriodism who complained of lethargy and CP x 3 days now admitted for futher evalaution found to be acutely anemic undergoing blood transfusions and evlaution by GI, nephro and cardiology Pt being transfused 2nd unit of blood now pt for possible Endo with Dr SIMS tomorrow per discussion with RN and confirmed with endoscopy dept will continue to follow
--- NOTE | 2018-10-22 12:00 | CON ---
DATE OF CONSULTATION: 10/22/2018 GASTROENTEROLOGY CONSULTATION REQUESTING PHYSICIAN: Dr. Han. REASON FOR CONSULTATION/HISTORY OF PRESENT ILLNESS: I have been asked to see this 83-year-old male with known history of coronary artery disease, chronic kidney disease, hypothyroidism, hypertension, who comes to the hospital with 3 days of substernal chest pain. He denies any shortness of breath, palpitations, rectal bleeding, nausea, vomiting or abdominal pain. Routine blood work in the emergency room showed the patient to be profoundly anemic with a hemoglobin of 7.2 several weeks ago. His hemoglobin was 10.6. He denies any overt GI bleeding, melena, hematemesis or rectal bleeding. PAST MEDICAL HISTORY: As above. Again, he has a history of coronary artery disease, chronic kidney disease, hypertension, hypothyroidism, benign prostatic hypertrophy. PAST SURGICAL HISTORY: Notable for coronary artery bypass surgery 10 years ago. SOCIAL HISTORY: He is a former cigarette smoker. He quit 40 years ago. He denies alcohol use. FAMILY HISTORY: Noncontributory. REVIEW OF SYSTEMS: Fourteen-point review of systems is notable for substernal chest pain. MEDICATIONS: Medications at home include baby aspirin, amiodarone, hydralazine, Levoxyl, Lasix, losartan, simvastatin, amlodipine, metoprolol, metolazone, finasteride and tamsulosin. PHYSICAL EXAMINATION: GENERAL: Elderly male, lying in bed, in no acute distress. VITAL SIGNS: Reveal A temperature of 97.9, blood pressure 141/60, heart rate of 60. HEENT: Revealed sclerae to be white. Conjunctivae pale. NECK: Supple. CHEST: Revealed lungs to be clear. HEART: Exam reveals a regular rate and rhythm. He has a 3/6 systolic murmur. ABDOMEN: Obese, soft, nontender, now has a well-healed sternotomy scar. EXTREMITIES: Show no edema. LABORATORY DATA: Revealed a hemoglobin of 7.3 after 1 unit of packed red blood cells. His hemoglobin on 10/21/2018 was 7.2, white blood cell count 10.8, platelet count 330,000. Chemistries reveal a BUN of 37, creatinine of 2. AST, ALT, alk phos were all normal. Iron saturation is 8. IMPRESSION: An 83-year-old male, admitted to the hospital with symptomatic anemia, hemoglobin of 7.3 without any overt gastrointestinal bleeding. He has dropped approximately 3 g of hemoglobin over the last several weeks. I suspect that this is chronic gastrointestinal blood loss over several weeks. RECOMMENDATIONS: 1. Transfuse packed red blood cells to a hematocrit of 30%. 2. Continue IV Protonix 40 mg twice a day. 3. Follow serial hematocrits. 4. Check CT scan of the abdomen and pelvis. 5. The patient is tentatively scheduled for an upper endoscopy on Thursday. Johnny Wood MD
[2018-10-22 12:20] LABS: TRANSFERRIN 275.42 mg/dL (206-381)
[2018-10-22 14:28] LABS: HEMOGLOBIN 8.9 g/dL (14.0-18.0)
--- NOTE | 2018-10-22 16:58 | CP.PCM.CON ---
<Chu Ramos Ava - Last Filed: 10/22/18 16:58> History of Present Illness - History of Present Illness History of Present Illness: Nephro consult note: Rachel PGY - 2 Reason for consult: Follows with Dr. Arzate outpatient 83 year old male with pertinent medical history of CKD and HTN [place] [facility] [place] 3 days of chest pain and a week of melanotic stools. Patient states that the reason he came into [facility] [place] was because he started feeling dizzy. Upon admission, patient was found to have anemia with Hgb of 7.3 (baseline is 10's). FOBT was positive in the ED. Nephrology was consulted for management of CKD. Review of Systems: 12 point ROS obtained and negative except as per HPI PMHx: CAD s/p CABG, CKD, HTN, Hypothyroidism, CHF-pEF (EF 71% in 2016), BPH PSHx: CABG (2008) Meds: Reviewed, see MAR Allergies: NKDA SocialHx: Former smoker quit 40 years ago, denies etoh, illicit drug use FamHx: Non-contributory Past Patient History - Infectious Disease Hx of Infectious Diseases: None - Tetanus Immunizations Tetanus Immunization: Unknown - Past Medical History & Family History Past Medical History?: Yes - Past Social History Smoking Status: Never Smoked - CARDIAC Hx Cardiac Disorders: Yes Hx Hypercholesterolemia: Yes Other/Comment: Hypotension - PULMONARY Hx Respiratory Disorders: No - NEUROLOGICAL Hx Neurological Disorder: No - HEENT Hx HEENT Problems: No - RENAL Hx Chronic Kidney Disease: Yes - ENDOCRINE/METABOLIC Hx Endocrine Disorders: No - HEMATOLOGICAL/ONCOLOGICAL Hx Blood Disorders: No - INTEGUMENTARY Hx Dermatological Problems: No - MUSCULOSKELETAL/RHEUMATOLOGICAL Hx Musculoskeletal Disorders: No Hx Falls: No - GASTROINTESTINAL Hx Gastrointestinal Disorders: No - GENITOURINARY/GYNECOLOGICAL Hx Genitourinary Disorders: No - PSYCHIATRIC Hx Psychophysiologic Disorder: No Hx Substance Use: No - SURGICAL HISTORY Hx Surgeries: No Hx Open Heart Surgery: Yes - ANESTHESIA Hx Anesthesia: Yes Hx Anesthesia Reactions: No Hx Malignant Hyperthermia: No Meds Allergies/Adverse Reactions: Allergies Allergy/AdvReac Type Severity Reaction Status Date / Time No Known Allergies Allergy Verified 10/21/18 13:12 - Medications Medications: Current Medications Amiodarone HCl (Cordarone) 200 mg PO DAILY [facility] Last Admin: 10/22/18 10:56 Dose: 200 mg Atorvastatin Calcium (Lipitor) 20 mg PO DIN [facility] Finasteride (Proscar) 5 mg PO DAILY [facility] Last Admin: 10/22/18 10:56 Dose: 5 mg Furosemide (Lasix) 20 mg IVP HS [facility] Furosemide (Lasix) 40 mg IVP DAILY [facility] Hydralazine HCl (Apresoline) 25 mg PO BID [facility] Last Admin: 10/22/18 10:56 Dose: 25 mg Levothyroxine Sodium (Synthroid) 150 mcg PO ACB [facility] Last Admin: 10/22/18 07:55 Dose: 150 mcg Pantoprazole Sodium (Protonix Inj) 40 mg IVP Q12 [facility] Last Admin: 10/22/18 14:18 Dose: 40 mg Tamsulosin HCl (Flomax) 0.4 mg PO DAILY [facility] Last Admin: 10/22/18 14:17 Dose: 0.4 mg Physical Exam - Constitutional Appears: Well - Head Exam Head Exam: ATRAUMATIC, NORMAL INSPECTION, NORMOCEPHALIC - Eye Exam Eye Exam: EOMI, Normal appearance, PERRL Pupil Exam: NORMAL ACCOMODATION, PERRL - ENT Exam ENT Exam: Mucous Membranes Moist, Normal Exam - Neck Exam Neck exam: Positive for: Normal Inspection - Respiratory Exam Respiratory Exam: Clear to Auscultation Bilateral, NORMAL BREATHING PATTERN - Cardiovascular Exam Cardiovascular Exam: REGULAR RHYTHM - GI/Abdominal Exam GI & Abdominal Exam: Normal Bowel Sounds, Soft. absent: Tenderness - Extremities Exam Extremities exam: Positive for: normal inspection - Back Exam Back exam: NORMAL INSPECTION - Neurological Exam Neurological exam: Alert, CN II-XII Intact, Normal Gait, Oriented x3, Reflexes Normal - Psychiatric Exam Psychiatric exam: Normal Affect, Normal Mood - Skin Skin Exam: Dry, Intact, Normal Color, Warm Results - Vital Signs Recent Vital Signs: Last Vital Signs Temp 98.2 F 10/22/18 15:49 Pulse 60 10/22/18 15:49 Resp 18 10/22/18 15:49 BP 139/60 10/22/18 15:49 Pulse Ox 100 10/22/18 06:00 - Labs Result Diagrams: 10/22/18 14:05 10/22/18 06:30 Labs: Laboratory Results - last 24 hr 10/21/18 10/21/18 10/21/18 13:48 13:48 13:48 WBC RBC Hgb Hct MCV MCH MCHC RDW Plt Count MPV Retic Count PT INR APTT Sodium Potassium Chloride Carbon Dioxide Anion Gap BUN Creatinine Est GFR ( Amer) Est GFR (Non-Af Amer) Random Glucose Hemoglobin A1c 6.1 Calcium Phosphorus Magnesium Iron 27 L TIBC 352 % Saturation 8 L Transferrin 275.42 Ferritin Total Bilirubin AST ALT Alkaline Phosphatase Troponin I Total Protein Albumin Globulin Albumin/Globulin Ratio Prostate Specific Ag Free T4 1.73 Thyroxine (T4) Blood Type Blood Type Confirm Antibody Screen Crossmatch BBK History Checked 10/21/18 10/21/18 10/21/18 17:04 18:17 18:17 WBC RBC Hgb Hct MCV MCH MCHC RDW Plt Count MPV Retic Count PT 12.1 INR 1.09 APTT 30.3 Sodium Potassium Chloride Carbon Dioxide Anion Gap BUN Creatinine Est GFR ( Amer) Est GFR (Non-Af Amer) Random Glucose Hemoglobin A1c Calcium Phosphorus Magnesium Iron TIBC % Saturation Transferrin Ferritin 27.4 Total Bilirubin AST ALT Alkaline Phosphatase Troponin I 0.01 Total Protein Albumin Globulin Albumin/Globulin Ratio Prostate Specific Ag Free T4 Thyroxine (T4) Blood Type Blood Type Confirm Antibody Screen Crossmatch BBK History Checked 10/21/18 10/21/18 10/21/18 18:17 18:17 18:17 WBC RBC Hgb Hct MCV MCH MCHC RDW Plt Count MPV Retic Count 5.00 H PT INR APTT Sodium Potassium Chloride Carbon Dioxide Anion Gap BUN Creatinine Est GFR ( Amer) Est GFR (Non-Af Amer) Random Glucose Hemoglobin A1c Calcium Phosphorus Magnesium Iron TIBC % Saturation Transferrin Ferritin Total Bilirubin AST ALT Alkaline Phosphatase Troponin I Total Protein Albumin Globulin Albumin/Globulin Ratio Prostate Specific Ag 0.7 Free T4 Thyroxine (T4) 8.4 Blood Type AB POSITIVE Blood Type Confirm Antibody Screen Negative Crossmatch See Detail BBK History Checked No verified bt 10/21/18 10/22/18 10/22/18 18:43 00:15 00:55 WBC 11.4 H RBC 2.56 L Hgb 7.8 L Hct 23.6 L MCV 92.2 MCH 30.5 MCHC 33.1 RDW 16.2 H Plt Count 321 MPV 8.6 Retic Count PT INR APTT Sodium Potassium Chloride Carbon Dioxide Anion Gap BUN Creatinine Est GFR ( Amer) Est GFR (Non-Af Amer) Random Glucose Hemoglobin A1c Calcium Phosphorus Magnesium Iron TIBC % Saturation Transferrin Ferritin Total Bilirubin AST ALT Alkaline Phosphatase Troponin I < 0.01 Total Protein Albumin Globulin Albumin/Globulin Ratio Prostate Specific Ag Free T4 Thyroxine (T4) Blood Type Blood Type Confirm AB POSITIVE Antibody Screen Crossmatch BBK History Checked 10/22/18 10/22/18 10/22/18 06:30 06:30 14:05 WBC 10.8 RBC 2.41 L Hgb 7.3 L 8.9 L Hct 22.2 L 26.8 L MCV 92.1 MCH 30.3 MCHC 32.9 RDW 16.7 H Plt Count 338 MPV 9.1 Retic Count PT INR APTT Sodium 142 Potassium 4.1 Chloride 113 H Carbon Dioxide 25 Anion Gap 8 L BUN 37 H Creatinine 2.0 H Est GFR ( Amer) 39 Est GFR (Non-Af Amer) 32 Random Glucose 95 Hemoglobin A1c Calcium 8.8 Phosphorus 3.7 Magnesium 2.5 H Iron TIBC % Saturation Transferrin Ferritin Total Bilirubin 0.5 AST 38 ALT 28 Alkaline Phosphatase 68 Troponin I Total Protein 6.2 Albumin 3.6 Globulin 2.7 Albumin/Globulin Ratio 1.3 Prostate Specific Ag Free T4 Thyroxine (T4) Blood Type Blood Type Confirm Antibody Screen Crossmatch BBK History Checked Assessment & Plan - Assessment and Plan (Free Text) Assessment: 83 year old male with pertinent medical history of CKD and HTN [place] [facility] [place] 3 days of chest pain and a week of melanotic stools. Nephrology consulted for management of CKD Plan Patient does not have clinical signs of fluid overload at this time. Denies any shortness of breath or edema, and there is no JVD, no crackles, no bilateral lower extremity pitting edema noted. Patient was s/p 2 U of blood when we exam ined him this morning. ECHO was done, is pending read. Acute GIB - s/p 2 U of blood, getting another one - GI is on consult CKD - Does not have an MIGUEL, Cr is .2 above baseline, does not meet formal criteria; CR bump could be 2/2 hypovolemia caused by GIb - Continue 40 lasix daily and 20 lasix at night. Monitor blood pressure Anemia of CKD - Hgb was at goal before GIB Chronic HTN - Continue home hydralazine <Foreign Arzate - Last Filed: 10/23/18 08:26> Meds - Medications Medications: Current Medications Amiodarone HCl (Cordarone) 200 mg PO DAILY [facility] Last Admin: 10/22/18 10:56 Dose: 200 mg Atorvastatin Calcium (Lipitor) 20 mg PO DIN [facility] Last Admin: 10/22/18 17:55 Dose: 20 mg Finasteride (Proscar) 5 mg PO DAILY [facility] Last Admin: 10/22/18 10:56 Dose: 5 mg Furosemide (Lasix) 20 mg PO DAILY [facility] Hydralazine HCl (Apresoline) 25 mg PO BID [facility] Last Admin: 10/22/18 17:55 Dose: 25 mg Levothyroxine Sodium (Synthroid) 150 mcg PO ACB [facility] Last Admin: 10/22/18 07:55 Dose: 150 mcg Pantoprazole Sodium (Protonix Inj) 40 mg IVP Q12 [facility] Last Admin: 10/22/18 21:30 Dose: 40 mg Tamsulosin HCl (Flomax) 0.4 mg PO DAILY [facility] Last Admin: 10/22/18 14:17 Dose: 0.4 mg Results - Vital Signs Recent Vital Signs: Last Vital Signs Temp 98.2 F 10/23/18 06:00 Pulse 60 10/23/18 06:00 Resp 19 10/23/18 06:00 BP 117/55 L 10/23/18 06:00 Pulse Ox 99 10/23/18 06:00 - Labs Result Diagrams: 10/22/18 21:00 10/22/18 06:30 Labs: Laboratory Results - last 24 hr 10/21/18 10/21/18 10/21/18 13:48 18:17 18:17 Hgb Hct Transferrin 275.42 Ferritin 27.4 Blood Type AB POSITIVE Antibody Screen Negative Crossmatch See Detail BBK History Checked No verified bt 10/22/18 10/22/18 14:05 21:00 Hgb 8.9 L 9.4 L Hct 26.8 L 28.1 L Transferrin Ferritin Blood Type Antibody Screen Crossmatch BBK History Checked Attending/Attestation - Attestation I have personally seen and examined this patient.: Yes I have fully participated in the care of the patient.: Yes I have reviewed all pertinent clinical information: Yes Notes (Text): Patient seen and examined; I agree with the resident's note as above with the following additions/edits: 83 yo M w/ pmh of htn, CAD s/p CABG, s/p aortic bioprosthesis, CHF w/ preserved EF/pulmonary htn, and CKD IIIB, following with our outpatient CKD service, admitted with symptomatic anemia secondary to likely GI bleed; Stable CHF status with patient appearing euvolemic on exam currently; on last 2 office visits, had marked bilateral lower ext edema, minimal today, with patient having been on home diuretic regimen of lasix 40 mg in am and 20 mg in pm as well as metalazone 5 mg once a week; giving single dose of IV lasix 20 mg given that patient is receiving his third unit prbc; will keep on lasix 20 mg PO daily for now; Stable CKD status; mostly non-proteinuric disease likely secondary to cardiorenal/renovascular etiology (has extensive vascular calcifications involving R renal areteries and even origin of L renal artery); Hypertensive CKD, BP currently on lower end of normal; amlodipine, losartan and metoprolol XL currently on hold; only getting hydralazine for now, will monitor closely; Previously with anemia of CKD but also Iron deficiency component with baseline Hgb ~11, but had been downward trending and had been getting PO iron; now with more acute/subacute blood loss, awaiting upper endoscopy; will give dose of aranesp also; Thank you for this referral, we will continue to follow closely.
--- NOTE | 2018-10-22 17:47 | PN ---
DATE: 10/22/2018 SUBJECTIVE: The patient received 2 units of packed red blood cells, hemoglobin remains low. OBJECTIVE: VITAL SIGNS: Blood pressure 136/62, heart rate is sinus bradycardia in the 50s. NECK: Negative JVD. LUNGS: Without rales. HEART: Reveal S1, S2 of 2/6 systolic ejection murmur. EXTREMITIES: Without edema. LABORATORY DATA: Reviewed T4 is 8.4. Echocardiogram is pending. IMPRESSION: 1. Critical aortic stenosis. 2. Anemia. 3. Angina. 4. History of coronary artery bypass surgery. 5. Aortic stenosis. 6. History of hypertension. Given these findings, I have discussed the findings with the patient's daughter. He will be continued to received a third unit of packed cells. Echocardiogram is pending. The patient is tentatively scheduled for catheterization on Thursday. Rod Gagnon MD
--- NOTE | 2018-10-22 17:47 | PN ---
DATE: 10/22/2018 SUBJECTIVE: The patient was seen in the emergency room on admission. The patient is an 83-year-old male who presented complaining of chest pain as well as diffuse weakness. 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 In addition, he suffers from hypercholesterolemia. Several years ago, he was found to have critical aortic stenosis, in which so far no intervention has been performed. He denies syncope, but he does admit to angina. In the emergency room, he was found to have a hemoglobin of 7.3, transfusions were ordered. SOCIAL HISTORY: The patient denies smoking. REVIEW OF SYSTEMS: A 14-point review of systems. 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 PHYSICAL EXAMINATION: VITAL SIGNS: Blood pressure is blood pressure is 136/62, the heart rate is in the 60s. NECK: Negative JVD. LUNGS: No rales noted. HEART: Reveals a 2/6 systolic ejection murmur. EXTREMITIES: Without edema. LABORATORY DATA: Hemoglobin is 7.8. Chemistries; BUN and creatinine is 37 and 2.0. Troponins are negative. IMPRESSION: 1. Weakness. 2. Angina. 3. History of coronary artery bypass surgery. 4. Marked anemia. 5. No evidence for acute coronary syndrome. 6. History of hypertension. Given these findings, the patient will need packed red blood cells transfusion. Echocardiogram has been ordered. Renal as well as GI has been consulted. The patient will be admitted to telemetry. Rod Gagnon MD
[2018-10-22 21:14] LABS: HEMOGLOBIN 9.4 g/dL (14.0-18.0)
[2018-10-23] MEDS ORDERED: Darbepoetin Alfa 60 mcg/ml Inj SC ONE (08:27)
[2018-10-23 08:38] LABS: HEMOGLOBIN 9.7 g/dL (14.0-18.0)
[2018-10-23] MEDS: Levothyroxine 150 MCG TAB PO SCH (08:38)
[2018-10-23 09:00] LABS: ALB/GLOB RATIO 1.3 (1.1-1.8); CALCIUM 9.1 mg/dL (8.4-10.5)
--- NOTE | 2018-10-23 14:18 | CARD ---
APPROVED REPORT Date of service: 10/22/2018 EXAM: Two-dimensional and M-mode echocardiogram with Doppler and color Doppler. INDICATION Dyspnea 2D DIMENSIONS Left Atrium (2D)4.6 (1.6-4.0cm)IVSd1.4 (0.7-1.1cm) LVDd4.8 (3.9-5.9cm)PWd1.2 (0.7-1.1cm) LVDs2.8 (2.5-4.0cm)FS (%) 41.2 % LVEF (%)71.8 (>50%) M-Mode DIMENSIONS Aortic Root3.70 (2.2-3.7cm)Aortic Cusp Exc.1.50 (1.5-2.0cm) Aortic Valve AoV Peak Waegrqbs625.0cm/sAoV PEM688.0cmAO Peak GR.77mmHg LVOT Peak Rwjenmti209.0cm/sLVOT VTI40.40cmAO Mean GR.35mmHg Mitral Valve MV E Zxsxwmrt293.0cm/sMV A Vcatmlul96.4cm/sE/A ratio2.2 TDI Lateral E' Peak V15.90cm/sMedial E' Peak V8.29cm/sE/Lateral E'8.8 E/Medial E'16.9 Pulmonary Valve PV Peak Uppuxxnj31.4cm/sPV Peak Grad.3mmHg Tricuspid Valve TR Peak Zwxjnqmt889tz/sRAP [id number] Peak Gr.75mmHg [id number] LEFT VENTRICLE The left ventricle is normal size. There is mild concentric left ventricular hypertrophy. The left ventricular function is normal. The left ventricular ejection fraction is within the normal range. Transmitral Doppler flow pattern is Grade II-pseudonormal filling dynamics. No left ventricle thrombus noted on this study. RIGHT VENTRICLE The right ventricle is normal size. There is normal right ventricular wall thickness. The right ventricular systolic function is normal. ATRIA The left atrium is mildly dilated. The right atrium is moderately dilated. AORTIC VALVE The aortic valve is moderately calcified. There is trace aortic regurgitation. There is severe valvular aortic stenosis. MITRAL VALVE The mitral valve is mildly thickened. Mitral regurgitation is mild to moderate. TRICUSPID VALVE There is severe tricuspid regurgitation. There is severe pulmonary hypertension. PULMONIC VALVE There is moderate pulmonic valvular regurgitation. GREAT VESSELS The aortic root is normal in size. The IVC is normal in size and collapses >50% with inspiration. <Conclusion> There is mild concentric left ventricular hypertrophy. The left ventricular function is normal. The left ventricular ejection fraction is within the normal range. Transmitral Doppler flow pattern is Grade II-pseudonormal filling dynamics. The aortic valve is moderately calcified.There is severe valvular aortic stenosis. Mitral regurgitation is mild to moderate. There is severe tricuspid regurgitation.There is severe pulmonary hypertension. There is moderate pulmonic valvular regurgitation.
--- NOTE | 2018-10-23 14:47 | CP.PCM.PN ---
Subjective - Date & Time of Evaluation Date of Evaluation: 10/23/18 Time of Evaluation: 14:44 - Subjective Subjective: 83 yo M w/ pmh of htn, CAD s/p CABG, s/p bioprosthetic AVR, CHF w/ preserved EF/pulm htn, and CKD IIIB, admitted with symptomatic anemia; Reporting some mild chest pressure, intermittent palpitations; otherwise feels well; ambulating hallway; good urine output per nursing staff; Objective - Vital Signs/Intake and Output Vital Signs (last 24 hours): Temp Pulse Resp BP Pulse Ox 98.1 F 65 20 129/63 99 10/23/18 12:00 10/23/18 12:00 10/23/18 12:00 10/23/18 12:00 10/23/18 06:00 Intake and Output: 10/23/18 10/23/18 06:59 18:59 Intake Total 1130 Output Total 1500 Balance -370 - Medications Medications: Current Medications Amiodarone HCl (Cordarone) 200 mg PO DAILY [facility] Last Admin: 10/23/18 09:09 Dose: 200 mg Atorvastatin Calcium (Lipitor) 20 mg PO DIN [facility] Last Admin: 10/22/18 17:55 Dose: 20 mg Finasteride (Proscar) 5 mg PO DAILY [facility] Last Admin: 10/23/18 09:10 Dose: 5 mg Furosemide (Lasix) 20 mg PO DAILY [facility] Last Admin: 10/23/18 09:10 Dose: 20 mg Hydralazine HCl (Apresoline) 25 mg PO BID [facility] Last Admin: 10/23/18 09:09 Dose: 25 mg Levothyroxine Sodium (Synthroid) 150 mcg PO ACB [facility] Last Admin: 10/23/18 08:38 Dose: 150 mcg Pantoprazole Sodium (Protonix Inj) 40 mg IVP Q12 [facility] Last Admin: 10/23/18 09:08 Dose: 40 mg Tamsulosin HCl (Flomax) 0.4 mg PO DAILY [facility] Last Admin: 10/22/18 14:17 Dose: 0.4 mg - Labs Labs: 10/23/18 08:26 10/23/18 08:26 PT 12.1 SECONDS (9.4-12.5) 10/21/18 17:04 INR 1.09 10/21/18 17:04 APTT 30.3 Seconds (26.9-38.3) 10/21/18 17:04 - Constitutional Appears: Non-toxic, No Acute Distress - Eye Exam Eye Exam: Normal appearance. absent: Scleral icterus - Respiratory Exam Respiratory Exam: Clear to Ausculation Bilateral. absent: Respiratory Distress - Cardiovascular Exam Cardiovascular Exam: RRR. absent: Gallop, Rubs Additional comments: systolic murmur - GI/Abdominal Exam GI & Abdominal Exam: Soft. absent: Distended, Tenderness - Extremities Exam Additional comments: moderate b/l lower leg edema (increased from yesterday); - Neurological Exam Neurological Exam: Alert, Awake - Psychiatric Exam Psychiatric exam: Normal Affect, Normal Mood. absent: Agitated - Skin Skin Exam: Warm. absent: Cyanosis Assessment and Plan (1) CKD (chronic kidney disease) stage 3, GFR 30-59 ml/min Assessment & Plan: Stable renal function; creatinine decreased after prbc transfusion; cardiorenal/renovascular etiology of CKD, need to ensure volume status is controlled in the setting of severe pulm htn; needs to be on adequate diuretic regimen and JETT blockade even if serum creatinine increases slightly; -Increasing PO lasix 20 mg to bid dosing; -restarting losartan 25 mg daily; -avoid nephrotoxic agents; Status: Chronic (2) Anemia Assessment & Plan: Hgb stable s/p 3 u prbc; f/u with GI for endoscopy; Status: Acute (3) Hypertensive chronic kidney disease with stage 1 through stage 4 chronic kidney disease, or unspecified chronic kidney disease Assessment & Plan: Low/normal BP yesterday, now increasing though still normotensive; restarting losartan as above; should restart b-choco and amlodipine as appropriate; Status: Chronic (4) Chronic kidney disease-mineral and bone disorder Assessment & Plan: Secondary hyperparathyrodism of CKD; will repeat PTH level; Status: Chronic (5) CHF (congestive heart failure) Assessment & Plan: See above, worsening leg edema; increase diuretics as needed (was on lasix 40 mg in am, 20 mg in pm, metolazone 5 mg weekly at home); f/u with cardio regarding severe ; Status: Acute
--- NOTE | 2018-10-23 14:48 | PN ---
DATE: 10/23/2018 SUBJECTIVE: The patient is feeling much better after 3 units of packed red blood cells. PHYSICAL EXAMINATION: VITAL SIGNS: Blood pressure 133/65, heart rates in the 60s. NECK: Negative JVD. LUNGS: Without rales. HEART: S1, S2 with a 2/6 systolic ejection murmur. EXTREMITIES: Without edema. LABORATORY DATA: Hemoglobin is up to 9.7. Chemistries, BUN and creatinine 24 and 1.8. IMPRESSION: 1. General malaise, better after packed red blood cells. 2. Marked anemia which is better. 3. Aortic stenosis. 4. Anemia. 5. Renal insufficiency. PLAN: Given these findings, we will monitor his BUN and creatinine as well as his hemoglobin. If his hemoglobin remained stable, we will proceed to cardiac catheterization to evaluate the aortic valve. Rod Gagnon MD
[2018-10-23 14:52] LABS: HEMOGLOBIN 10.3 g/dL (14.0-18.0)
--- NOTE | 2018-10-23 20:06 | CARD ---
APPROVED REPORT Date of service: 10/23/2018 EKG Measurement Heart [id number] <Conclusion> Sinus rhythm with 1st degree AV block Cannot rule out Inferior infarct, age undetermined Abnormal ECG
--- NOTE | 2018-10-24 00:52 | PN ---
DATE: 10/23/2018 SUBJECTIVE: The patient is seen sitting up in the bed in room 271, bed 1. Overnight nurse's notes were reviewed. The patient's telemetry monitoring shows sinus rhythm, sinus bradycardia, average heart rate is in 60s and 65. PHYSICAL EXAMINATION: VITAL SIGNS: T max is 98.5, blood pressure 151/64, 129/63, 117/55, 120/61, respiration 20, O2 sat is 97% to 100%. HEENT: Head is normocephalic, atraumatic. HEENT examination shows pale conjunctivae. Anicteric sclerae. No oropharyngeal lesion. NECK: No neck rigidity. Positive median sternotomy surgical scar. CHEST: Kyphosis. LUNGS: Shows questionable decreased breath sound at the left base. CARDIOVASCULAR: S1, S2, regular rhythm. Questionable systolic murmur at right second intercostal space, left sternal border, left second intercostal space. ABDOMEN: Soft. Positive bowel sounds. Slightly protuberant. GENITALIA: Male. RECTAL: Deferred. EXTREMITIES: Shows almost complete resolution of the pitting edema. IMPRESSION: 1. Chest pain. 2. Severe symptomatic anemia with symptoms of fatigue and tiredness. 3. Hypertension. 4. Severe symptomatic anemia with hemoglobin dropping to 7.0. 5. Hypoproliferative bone marrow reaction with elevated reticulocyte count. 6. Leukocytosis. 7. Status post 3 units of PRBC. 8. Chest pain, etiology undetermined. 9. Hypothyroidism with elevated TSH of 6.34. 10. Probable acute diastolic congestive heart failure with elevated proBNP. 11. Iron-deficiency anemia with decreased iron saturation. 12. Acute kidney injury with underlying chronic kidney disease stage III, resolving. 13. Status post packed red blood cell transfusion x3. 14. Gait dysfunction. 15. Deconditioning. 16. Right renal cortical cyst. 17. Bilateral renal increased echogenicity. 18. Bilateral renal cyst. 19. Medical renal disease. 20. Diastolic right-sided congestive heart failure with pulmonary vascular congestion. 21. Ectatic tortuous thoracic aorta. 22. Moderately enlarged main pulmonary artery. 23. Cardiomegaly. 24. Trace right pleural effusion. 25. Right renal cyst. 26. Pulmonary vascular congestion. 27. Cardiomegaly with pulmonary vascular congestion and aortic calcification. 28. History of coronary artery disease and coronary artery bypass graft. 29. Left ventricular ejection fraction of 71% to 72%. 30. Severe tricuspid regurgitation and severe pulmonary hypertension with right ventricular systolic pressure of 85 mmHg. 31. Concentric left ventricular hypertrophy with grade 2 pseudonormal filling dynamics. 32. Moderately dilated right and right atrium. 33. Moderately calcified aortic valve with severe valvular aortic stenosis. 34. Angd-fh-hycqxdeq mitral regurgitation. 35. Moderate pulmonic valvular regurgitation. 36. Status post bioprosthetic aortic valve replacement. 37. Chronic kidney disease stage IIIB. 38. Anemia. 39. Hypertensive chronic kidney disease. 40. Compensated congestive heart failure. 41. Severe symptomatic anemia with symptoms of fatigue. 42. Chest pain. 43. Yvlqwn-vz-wdcprgnt aortic stenosis. 44. History of hypothyroidism. 45. History of hypertension. 46. Prostatic hypertrophy. 47. Hyperlipidemia. PLAN: At this time, the patient has been ordered serial labs. The patient has been ordered PTH. CURRENT CONSULTATION: Cardiology, Nephrology, Gastroenterology. The patient is scheduled for cardiac catheterization and endoscopy by Gastroenterology, probably day after tomorrow. The patient is on hydralazine 25 mg twice a day, amiodarone 200 mg daily, Cozaar 25 mg daily as per Nephrology, Flomax 0.4 mg daily, Lasix 20 mg twice a day, Lipitor 20 mg daily, Proscar 5 mg daily, Protonix 40 mg IV every 12, Synthroid 150 mcg p.o. daily. The patient is on liquid diet by Dr. Johnny Wood. The patient has received 3 units of PRBC. The patient's repeat lab work has been ordered. At present, the patient will be continued on the above therapeutic intervention. The patient's further management will be dependent upon the patient's clinical condition, hemodynamic status and as per the patient response to therapeutic intervention, as per the patient's diagnostic test results, and as per recommendation by all the physician involved in the care of the patient. The patient has been ordered out of bed to chair. TCU evaluation. Incentive spirometry, oxygen 2 liters continuous. Head of the bed aspiration precautions. Head of the bed at 30 to 45 degrees, out of bed to chair. EDILIA stockings, thigh high, daily weights, SCDs, physical therapy, occupational therapy all ordered. At present, the patient's overall prognosis is guarded. The patient is awaiting further Cardiology and Gastroenterology interventions. Dictated and electronically signed, not read. Surinder MD Em[facility] # [id number]
[2018-10-24] MEDS: Pantoprazole 40 mg EC Tab PO SCH (06:06)
[2018-10-24 07:33] LABS: BASO # 0.01 K/mm3 (0.0-2.0); BASO % 0.1 % (0.0-3.0); EOS # 0.1 (0.0-0.7); EOS % 1.1 % (1.5-5.0); HEMOGLOBIN 10.5 g/dL (14.0-18.0); LYMPH # 1.3 (1.2-3.4); LYMPH % 13.7 % (22.0-35.0); MEAN CELL VOLUME 92.5 fl (80.0-105.0); MEAN CORPUSCULAR HEMOGLOBIN 30.4 pg (25.0-35.0); MEAN CORPUSCULAR HGB CONC 32.9 g/dl (31.0-37.0); MONO # 1.5 (0.1-0.6); MONO % 16.3 % (1.0-6.0); RBC 3.45 10^6/uL (3.5-6.1); RED CELL DISTRIBUTION WIDTH 16.2 % (11.5-14.5); WHITE BLOOD COUNT 9.3 10^3/uL (4.5-11.0)
[2018-10-24 07:56] LABS: ALB/GLOB RATIO 1.2 (1.1-1.8); ALBUMIN 4.1 g/dL (3.0-4.8); BILIRUBIN,DIRECT 0.4 mg/dL (0.0-0.4)
[2018-10-24 08:29] LABS: ALB/GLOB RATIO 1.2 (1.1-1.8); CALCIUM 8.9 mg/dL (8.4-10.5)
[2018-10-24] MEDS: Levothyroxine 150 MCG TAB PO SCH (08:48)
--- NOTE | 2018-10-24 12:54 | PN ---
DATE: 10/24/[address] Rod Gagnon. SUBJECTIVE: The patient appears comfortable. He denies chest pain. PHYSICAL EXAMINATION VITAL SIGNS: Blood pressure 139/64, heart rate 68, temperature 98.4, and respirations 20. HEENT: Normocephalic. CHEST: Clear. HEART: S1 and S2, regular. Grade 4/6 ejection systolic murmur over left sternal border. ABDOMEN: Soft. EXTREMITIES: No edema. LABORATORY DATA: EKG reveals sinus rhythm, rule out anterior infarct. Echocardiographic study revealed mild concentric elevation with normal ejection fraction. Grade II abnormal relaxation pattern. Mildly classified aortic valve with severe valvular aortic stenosis, mild to moderate mitral insufficiency, severe pulmonary hypertension. ASSESSMENT: 1. Severe aortic stenosis. 2. Severe pulmonary hypertension. 3. Anemia, requiring 3 units of packed red blood cell transfusion. 4. Chronic renal insufficiency. RECOMMENDATIONS: I will continue current amiodarone 200 mg daily, Cozaar 25 mg once a day, Lasix 20 mg p.o. twice a day, Lipitor 20 mg once a day, Synthroid 150 mcg once a day. The patient is scheduled for cardiac catheterization tomorrow. We will administer Mucomyst 600 mg twice a day. Lorenzo Monteiro MD
[2018-10-24] MEDS ORDERED: Ergocalciferol 50,000 Intl Units Cap PO SCH (16:30)
[2018-10-24] MEDS ORDERED: POLYETHYLENE GLYCOL 3350 17 GM/Dose PACKET PO ONE (20:47)
[2018-10-24] MEDS ORDERED: Magnesium Hydroxide Susp 30 ml UD PO ONE (20:57)
--- NOTE | 2018-10-24 21:39 | PN ---
DATE: 10/24/2018 SUBJECTIVE: The patient is seen in room 271, bed 1. The patient is sitting up in the bed. I have also seen the patient's today. The patient does not appear to be in any distress. The patient denies any fatigue, chest pain, shortness of breath, tiredness. A 14-system review was done, pertinent positives and negatives dictated above. PHYSICAL EXAMINATION: VITAL SIGNS: T-max 98.4; heart rate 61, 68, 70, and 74. Telemetry monitoring in the last 24 hours shows sinus rhythm with questionable first-degree heart block which is not consistent. Blood pressure 141/64, 139/64, 139/64, 124/63, 151/64 yesterday; respiration 18; O2 sat is 98-100%. HEENT: Head examination; normocephalic, atraumatic. HEENT examination shows pinkish conjunctivae. Anicteric sclerae. No oropharyngeal lesion. No neck rigidity. CHEST: Shows a median sternotomy surgical scar. Positive kyphosis. LUNGS: Show no audible crackle, rales or wheezing. CARDIOVASCULAR: Shows S1, S2. Positive systolic murmur in left sternal border, right second intercostal space, left second intercostal space. ABDOMEN: Soft. Positive bowel sound. No palpable hepatosplenomegaly. GENITALIA: Male. RECTAL: Deferred. EXTREMITIES: Show complete resolution of the pitting edema of the lower extremity. MUSCULOSKELETAL: Shows a body mass index of 32. DIAGNOSTICS: October 24, hemoglobin and hematocrit 10.5 and 32, platelets 361, granulocytes 68% segs. LFTs are within normal limits. Creatinine has come down to 1.9 from admission creatinine of 2.4. BUN has normalized from a peak BUN of 50. Magnesium is 2.4. LFTs are negative. Vitamin D 25-hydroxy is 23.1. PSA is normal. TSH was elevated at 6.34, thyroxin total T4 was 8.4. The patient received 3 units of PRBC. The patient's imaging studies, echo, EKG all reviewed. IMPRESSION AND PLAN: 1. Severe symptomatic anemia with symptoms of fatigue, tiredness and chest pain. 2. Status post packed red blood cell transfusion x3. 3. Hypertension. 4. Coronary artery disease, coronary artery bypass graft. 5. Severe symptomatic anemia with symptoms of shortness of chest pain and fatigue and tiredness with hemoglobin dropping to 7.2. 6. Hyperproliferative bone marrow response with elevated reticulocyte count. 8. Granulocytosis. 9. Hypothyroidism. 10. Iron-deficiency anemia. 11. Hypokalemia. 12. Prediabetes with hemoglobin A1c of 6.1. 13. Acute renal failure, acute kidney injury (resolving and resolved). 14. Hypovitaminosis D. 15. History of hypertension. 16. Severe aortic stenosis. 17. Left ventricular ejection fraction of 72%. 18. Severe pulmonary hypertension with right ventricular systolic pressure of 85 mmHg. 19. Concentric left ventricular hypertrophy with grade 2 pseudonormal filling dynamics. 20. Moderately dilated right atrium and mildly dilated left atrium. 21. Severe valvular aortic stenosis with moderately calcified aortic valve. 22. Moderate mitral regurgitation with mildly thickened mitral valve. 23. Severe tricuspid regurgitation with severe pulmonary hypertension. 24. Age-indeterminate inferior infarct. 25. Questionable gastrointestinal bleeding with fecal occult blood positive. 26. Prostatic hypertrophy. 27. Hyperlipidemia. PLAN: At this time, the patient is awaiting for further cardiac and GI intervention. Repeat serial labs ordered. Current consultation Cardiology, Nephrology, and Gastroenterology. Current medications: The patient is on Mucomyst 20% 3 mL p.o. twice a day for cardiac catheterization preparation, hydralazine 25 mg twice a day, amiodarone 200 mg daily, Cozaar 25 mg daily, Drisdol 50,000 units weekly, Flomax 0.4 mg daily, Venofer 200 mg IV daily, Lasix 20 mg twice a day as per Nephrology, Lipitor 20 mg daily, Proscar 5 mg daily, Protonix 40 mg daily, Synthroid increased to 150 mcg daily, Tylenol 650 p.r.n., Zofran 4 mg IV q. 4 hours p.r.n. Repeat EKG. The patient is on liquid diet as per Gastroenterology in anticipation for endoscopy, colonoscopy once the patient is cleared by Cardiology.. At present, the patient will be continued on above therapeutic intervention with close followup with Gastroenterology, Cardiology and Nephrology. Dictated and electronically signed, not read. Surinder Han MD
--- NOTE | 2018-10-24 23:11 | CP.PCM.PN ---
Subjective - Date & Time of Evaluation Date of Evaluation: 10/24/18 Time of Evaluation: 11:00 - Subjective Subjective: 83 yo M w/ pmh of htn, CAD s/p CABG, s/p bioprosthetic AVR, CHF w/ preserved EF/pulm htn, and CKD IIIB, admitted with symptomatic anemia; Patient's main complaint is constipation, otherwise urinating well; no sob; Objective - Vital Signs/Intake and Output Vital Signs (last 24 hours): Temp Pulse Resp BP Pulse Ox 97.8 F 64 18 154/70 H 98 10/24/18 18:00 10/24/18 22:00 10/24/18 18:00 10/24/18 18:00 10/24/18 06:00 Intake and Output: 10/24/18 10/25/18 18:59 06:59 Intake Total 2740 Output Total 2500 Balance 240 - Medications Medications: Current Medications Acetaminophen (Tylenol 325mg Tab) 650 mg PO Q6 PRN PRN Reason: TEMP>=99.5F Acetaminophen (Tylenol 650 Mg Supp) 650 mg RC Q6H PRN PRN Reason: TEMP>=99.5F Acetylcysteine (Acetylcysteine 20%) 3 ml PO BID [facility] Amiodarone HCl (Cordarone) 200 mg PO DAILY [facility] Last Admin: 10/24/18 09:16 Dose: 200 mg Atorvastatin Calcium (Lipitor) 20 mg PO DIN [facility] Last Admin: 10/24/18 17:49 Dose: 20 mg Ergocalciferol (Drisdol 50,000 Intl Units Cap) 1 cap PO Q7D [facility] Last Admin: 10/24/18 17:34 Dose: 1 cap Finasteride (Proscar) 5 mg PO DAILY [facility] Last Admin: 10/24/18 09:17 Dose: 5 mg Furosemide (Lasix) 20 mg PO BID [facility] Last Admin: 10/24/18 17:50 Dose: 20 mg Hydralazine HCl (Apresoline) 25 mg PO BID [facility] Last Admin: 10/24/18 17:49 Dose: 25 mg Iron Sucrose 200 mg/ Sodium (Chloride) 110 mls @ 110 mls/hr IVPB DAILY [facility] Stop: 10/28/18 10:59 Last Admin: 10/24/18 17:35 Dose: 110 mls/hr Levothyroxine Sodium (Synthroid) 150 mcg PO ACB [facility] Last Admin: 10/24/18 08:48 Dose: 150 mcg Losartan Potassium (Cozaar) 25 mg PO DAILY [facility] Last Admin: 10/24/18 09:18 Dose: 25 mg Ondansetron HCl (Zofran Inj) 4 mg IVP Q4H PRN PRN Reason: Nausea/Vomiting Pantoprazole Sodium (Protonix Ec Tab) 40 mg PO 0600 [facility] Last Admin: 10/24/18 06:06 Dose: 40 mg Tamsulosin HCl (Flomax) 0.4 mg PO DAILY [facility] - Labs Labs: 10/24/18 06:50 10/24/18 06:50 PT 12.1 SECONDS (9.4-12.5) 10/21/18 17:04 INR 1.09 10/21/18 17:04 APTT 30.3 Seconds (26.9-38.3) 10/21/18 17:04 - Constitutional Appears: Non-toxic, No Acute Distress - Respiratory Exam Respiratory Exam: Clear to Ausculation Bilateral. absent: Rales, Respiratory Distress - Cardiovascular Exam Cardiovascular Exam: RRR Additional comments: systolic murmur; - GI/Abdominal Exam GI & Abdominal Exam: Soft. absent: Distended, Tenderness - Extremities Exam Additional comments: mild/moderate b/l lower ext edema (stable); - Neurological Exam Neurological Exam: Alert - Psychiatric Exam Psychiatric exam: Normal Affect, Normal Mood. 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
--- NOTE | 2018-10-24 23:50 | CP.PCM.PN ---
Subjective - Date & Time of Evaluation Date of Evaluation: 10/24/18 Time of Evaluation: 23:45 - Subjective Subjective: Patient was seen at bedside because I was asked to co-sign order of MOM, Miralax order was cancelled. Patient states that he has had not bowel movement for 3 days. As per patient's nurse Elena, patient has been on liquid diet. He has no other complaints. Speaks very little Romansh. This 83 year old [place] speaking with very little knowledge of Romansh, was admitted with chest pain. Has PMH of CAD,CKD,hypertension,S/P CABG,CHF, hypothyroidism,BPH. Objective - Vital Signs/Intake and Output Vital Signs (last 24 hours): Temp Pulse Resp BP Pulse Ox 97.8 F 64 18 154/70 H 98 10/24/18 18:00 10/24/18 22:00 10/24/18 18:00 10/24/18 18:00 10/24/18 06:00 Intake and Output: 10/24/18 10/25/18 18:59 06:59 Intake Total 2740 Output Total 2500 Balance 240 - Medications Medications: Current Medications Acetaminophen (Tylenol 325mg Tab) 650 mg PO Q6 PRN PRN Reason: TEMP>=99.5F Acetaminophen (Tylenol 650 Mg Supp) 650 mg RC Q6H PRN PRN Reason: TEMP>=99.5F Acetylcysteine (Acetylcysteine 20%) 3 ml PO BID [facility] Amiodarone HCl (Cordarone) 200 mg PO DAILY [facility] Last Admin: 10/24/18 09:16 Dose: 200 mg Atorvastatin Calcium (Lipitor) 20 mg PO DIN [facility] Last Admin: 10/24/18 17:49 Dose: 20 mg Ergocalciferol (Drisdol 50,000 Intl Units Cap) 1 cap PO Q7D [facility] Last Admin: 10/24/18 17:34 Dose: 1 cap Finasteride (Proscar) 5 mg PO DAILY [facility] Last Admin: 10/24/18 09:17 Dose: 5 mg Furosemide (Lasix) 20 mg PO BID [facility] Last Admin: 10/24/18 17:50 Dose: 20 mg Hydralazine HCl (Apresoline) 25 mg PO BID [facility] Last Admin: 10/24/18 17:49 Dose: 25 mg Iron Sucrose 200 mg/ Sodium (Chloride) 110 mls @ 110 mls/hr IVPB DAILY [facility] Stop: 10/28/18 10:59 Last Admin: 10/24/18 17:35 Dose: 110 mls/hr Levothyroxine Sodium (Synthroid) 150 mcg PO ACB [facility] Last Admin: 10/24/18 08:48 Dose: 150 mcg Losartan Potassium (Cozaar) 25 mg PO DAILY [facility] Last Admin: 10/24/18 09:18 Dose: 25 mg Ondansetron HCl (Zofran Inj) 4 mg IVP Q4H PRN PRN Reason: Nausea/Vomiting Pantoprazole Sodium (Protonix Ec Tab) 40 mg PO 0600 [facility] Last Admin: 10/24/18 06:06 Dose: 40 mg Tamsulosin HCl (Flomax) 0.4 mg PO DAILY [facility] - Labs Labs: 10/24/18 06:50 10/24/18 06:50 PT 12.1 SECONDS (9.4-12.5) 10/21/18 17:04 INR 1.09 10/21/18 17:04 APTT 30.3 Seconds (26.9-38.3) 10/21/18 17:04 - Constitutional Appears: Well, No Acute Distress - Head Exam Head Exam: ATRAUMATIC, NORMAL INSPECTION, NORMOCEPHALIC - Eye Exam Eye Exam: Normal appearance - ENT Exam ENT Exam: Normal External Ear Exam - Neck Exam Neck Exam: Normal Inspection - Respiratory Exam Respiratory Exam: NORMAL BREATHING PATTERN - Cardiovascular Exam Cardiovascular Exam: absent: JVD - GI/Abdominal Exam GI & Abdominal Exam: absent: Distended - Rectal Exam Rectal Exam: Deferred - Exam Additional comments: Deferred. - Extremities Exam Extremities Exam: Normal Inspection - Back Exam Back Exam: NORMAL INSPECTION - Neurological Exam Neurological Exam: Alert, Awake - Psychiatric Exam Psychiatric exam: Normal Affect, Normal Mood - Skin Skin Exam: Normal Color Assessment and Plan - Assessment and Plan (Free Text) Assessment: Constipation. CAD. HTN. Hypothyroidism. Aortic stenosis. Pulmonary hypertension. Plan: MOM 30 CC PO given. Will give glycerine suppository prn. Patient is for cardiac cath in am. Continue present management and possible endoscopy.
[2018-10-25] MEDS: Pantoprazole 40 mg EC Tab PO SCH (05:14)
[2018-10-25] MEDS ORDERED: Lidocaine 2% Inj (20ml) ONE (06:52)
[2018-10-25] MEDS ORDERED: Nitroglycerin 50mg in D5W 0 MG/0 ML BOTTLE IV ONE (06:53)
[2018-10-25] MEDS ORDERED: Heparin 0 ML IV ONE (06:53)
[2018-10-25] MEDS ORDERED: Phenylephrine 10 mg/ml Inj ONE (06:53)
[2018-10-25] MEDS ORDERED: Iohexol 350mgl/ml 50 ML ONE (06:53)
[2018-10-25] MEDS ORDERED: Iodixanol 320 MG/ML 100 ML BOTTLE IV ONE (06:53)
[2018-10-25] MEDS ORDERED: Iodixanol 320 MG/ML 200 ML BOTTLE IV ONE (06:53)
[2018-10-25 07:14] LABS: BASO # 0.02 K/mm3 (0.0-2.0); BASO % 0.2 % (0.0-3.0); EOS # 0.1 (0.0-0.7); EOS % 0.9 % (1.5-5.0); HEMOGLOBIN 10.1 g/dL (14.0-18.0); MEAN CELL VOLUME 92.3 fl (80.0-105.0); MEAN CORPUSCULAR HEMOGLOBIN 30.1 pg (25.0-35.0); MEAN CORPUSCULAR HGB CONC 32.6 g/dl (31.0-37.0); MEAN PLATELET VOLUME 8.9 fl (7.0-11.0); MONO # 1.4 (0.1-0.6); MONO % 15.8 % (1.0-6.0); RBC 3.36 10^6/uL (3.5-6.1); RED CELL DISTRIBUTION WIDTH 15.9 % (11.5-14.5); WHITE BLOOD COUNT 8.9 10^3/uL (4.5-11.0)
[2018-10-25 07:31] LABS: ALB/GLOB RATIO 1.2 (1.1-1.8); ALBUMIN 3.8 g/dL (3.0-4.8); CALCIUM 8.9 mg/dL (8.4-10.5)
[2018-10-25 07:32] LABS: ALB/GLOB RATIO 1.3 (1.1-1.8); ALBUMIN 3.8 g/dL (3.0-4.8); BILIRUBIN,DIRECT 0.1 mg/dL (0.0-0.4)
--- NOTE | 2018-10-25 07:53 | CP.PCM.PN ---
Subjective - Date & Time of Evaluation Date of Evaluation: 10/25/18 Time of Evaluation: 07:52 - Subjective Subjective: PGY-[address] Han No acute event overnight. Pt said no pain Objective - Vital Signs/Intake and Output Vital Signs (last 24 hours): Temp Pulse Resp BP Pulse Ox 98.3 F 59 L 19 123/65 96 10/25/18 06:00 10/25/18 06:00 10/25/18 06:00 10/25/18 06:00 10/25/18 06:00 Intake and Output: 10/25/18 10/25/18 06:59 18:59 Intake Total 480 Output Total 900 Balance -420 - Medications Medications: Current Medications Acetaminophen (Tylenol 325mg Tab) 650 mg PO Q6 PRN PRN Reason: TEMP>=99.5F Acetaminophen (Tylenol 650 Mg Supp) 650 mg RC Q6H PRN PRN Reason: TEMP>=99.5F Acetylcysteine (Acetylcysteine 20%) 3 ml PO BID [facility] Amiodarone HCl (Cordarone) 200 mg PO DAILY [facility] Last Admin: 10/24/18 09:16 Dose: 200 mg Atorvastatin Calcium (Lipitor) 20 mg PO DIN [facility] Last Admin: 10/24/18 17:49 Dose: 20 mg Ergocalciferol (Drisdol 50,000 Intl Units Cap) 1 cap PO Q7D [facility] Last Admin: 10/24/18 17:34 Dose: 1 cap Finasteride (Proscar) 5 mg PO DAILY [facility] Last Admin: 10/24/18 09:17 Dose: 5 mg Furosemide (Lasix) 20 mg PO BID [facility] Last Admin: 10/24/18 17:50 Dose: 20 mg Hydralazine HCl (Apresoline) 25 mg PO BID [facility] Last Admin: 10/24/18 17:49 Dose: 25 mg Iron Sucrose 200 mg/ Sodium (Chloride) 110 mls @ 110 mls/hr IVPB DAILY [facility] Stop: 10/28/18 10:59 Last Admin: 10/24/18 17:35 Dose: 110 mls/hr Levothyroxine Sodium (Synthroid) 150 mcg PO ACB [facility] Last Admin: 10/24/18 08:48 Dose: 150 mcg Losartan Potassium (Cozaar) 25 mg PO DAILY [facility] Last Admin: 10/24/18 09:18 Dose: 25 mg Ondansetron HCl (Zofran Inj) 4 mg IVP Q4H PRN PRN Reason: Nausea/Vomiting Pantoprazole Sodium (Protonix Ec Tab) 40 mg PO 0600 [facility] Last Admin: 10/25/18 05:14 Dose: Not Given Tamsulosin HCl (Flomax) 0.4 mg PO DAILY [facility] - Labs Labs: 10/25/18 06:50 10/25/18 06:50 PT 12.1 SECONDS (9.4-12.5) 10/21/18 17:04 INR 1.09 10/21/18 17:04 APTT 30.3 Seconds (26.9-38.3) 10/21/18 17:04 - Constitutional Appears: In Acute Distress - Head Exam Head Exam: ATRAUMATIC, NORMAL INSPECTION, NORMOCEPHALIC - Eye Exam Eye Exam: EOMI, Normal appearance, PERRL. absent: Scleral icterus Pupil Exam: NORMAL ACCOMODATION - ENT Exam ENT Exam: Mucous Membranes Moist, Normal Exam - Neck Exam Neck Exam: Normal Inspection Additional comments: No JVD - Respiratory Exam Respiratory Exam: Clear to Ausculation Bilateral, NORMAL BREATHING PATTERN. absent: Decreased Breath Sounds - Cardiovascular Exam Cardiovascular Exam: REGULAR RHYTHM, +S1, +S2, Murmur - GI/Abdominal Exam GI & Abdominal Exam: Soft, Normal Bowel Sounds. absent: Tenderness - Extremities Exam Extremities Exam: Normal Capillary Refill, Normal Inspection. absent: Calf Tenderness, Pedal Edema, Tenderness - Back Exam Back Exam: absent: CVA tenderness (L), CVA tenderness (R) - Neurological Exam Neurological Exam: Alert, Awake, CN II-XII Intact, Normal Gait, Oriented x3 Neuro motor strength exam: Left Upper Extremity: 5, Right Upper Extremity: 5, Left Lower Extremity: 5, Right Lower Extremity: 5 - Psychiatric Exam Psychiatric exam: Normal Affect, Normal Mood - Skin Skin Exam: Dry, Warm Assessment and Plan - Assessment and Plan (Free Text) Plan: Mr Cao, 83 M, with PMHx CAD s/p CABG (2009), CHF-pEF (EF 71%), HTN, CKD, hypothyroidism, BPH c/o substernal chest pain x 3 days and weakness. Hb found to be in 7 on admission. Dark stool recently for more than 1 week. Never seen GI doc. VSS. , Kiera ([phone]) translated. Esophageal candidiasis [ ] ck HIV - Diflucan x 10 days (day 1) Severe aortic valve stenosis s/p bioprosthetic AVR ? valve failure Complicated by mitral regurg/severe pulm hypertension (RVSP 85) and pulmoniv valve regurg [ ] Cardiac cath Thursday 9am - Need to follow up with home decorator outpatient for possible valve revision Symptomatic Anemia (7 on admission, 10 at baseline) - stable at baseline s/p 3u pRBC Iron deficiency anemia GI bleed, getting 2nd bag pRBC. FOBT+ - EGD (10/21/18) Esophageal candidiasis, gastric polyp - No ASA, NSAID 2 weeks - f/u GI in 4 weeks for Bx result - PTX PO daily - CT Chest/Abdomen/Pelvis w/o contrast -No acute pathology. mild to moderate pulmonary vascular congestion. trace R pleural effusion. Chest Pain had ruled out ACS Hx CAD s/p CABG, HLD/HTN CHF, diastolic - trops neg x 3. EKG: N, severe SR. No ST or T wave changes. serial EKG did not show significant changes - No ASA, MSAOD fpr 2 weels - Lasix 20 PO BID (increase) - Home Amiodarone 200 qd, hydralazine 25 bid, cozaar 25 Constipation - Last BM 3 days ago. Got MOM x 1 MIGUEL on CKD3B - MIGUEL resolved Cr baseline is 2 - Renal US - increased echogenicity likely medical renal disease. No hydrone phrosis - Bladder US - Post-void residual 39.4cc is normal but markedly increase from previous 2.49cc - PSA normal - Bladder scan q6 with straight cath PRN Hx Hypothyroidism - TSH elevated 6.34. Free T4 nl. Increased synthroid to 150 ACB. Hx BPH - c/w flomax and finasteride home med GI ppx: ptx Diet: NPO Consult: Carito Velázquez, Nina Dispo planning: Home, not a skilled PT candidate s/r/d/w Dr Han
--- NOTE | 2018-10-25 10:29 | CP.PCM.PN ---
<RachelChu Ava - Last Filed: 10/25/18 18:13> Subjective - Date & Time of Evaluation Date of Evaluation: 10/25/18 Time of Evaluation: 10:26 - Subjective Subjective: Nephrology progress note - Rachel PGY - 2 Patient seen and examined at bedside. No acute overnight events, patient has been having soft, brown stools, non-melanotic. Patient is going to endoscopy (upper GI scope) as well as cath today. No acute complaints; chest pain has resolved. Objective - Vital Signs/Intake and Output Vital Signs (last 24 hours): Temp Pulse Resp BP Pulse Ox 98.3 F 59 L 19 123/65 96 10/25/18 06:00 10/25/18 06:00 10/25/18 06:00 10/25/18 06:00 10/25/18 06:00 Intake and Output: 10/25/18 10/25/18 06:59 18:59 Intake Total 480 Output Total 900 Balance -420 - Medications Medications: Current Medications Acetaminophen (Tylenol 325mg Tab) 650 mg PO Q6 PRN PRN Reason: TEMP>=99.5F Acetaminophen (Tylenol 650 Mg Supp) 650 mg RC Q6H PRN PRN Reason: TEMP>=99.5F Acetylcysteine (Acetylcysteine 20%) 3 ml PO BID [facility] Amiodarone HCl (Cordarone) 200 mg PO DAILY [facility] Last Admin: 10/24/18 09:16 Dose: 200 mg Atorvastatin Calcium (Lipitor) 20 mg PO DIN [facility] Last Admin: 10/24/18 17:49 Dose: 20 mg Docusate Sodium (Colace) 100 mg PO TID [facility] Ergocalciferol (Drisdol 50,000 Intl Units Cap) 1 cap PO Q7D [facility] Last Admin: 10/24/18 17:34 Dose: 1 cap Finasteride (Proscar) 5 mg PO DAILY [facility] Last Admin: 10/24/18 09:17 Dose: 5 mg Furosemide (Lasix) 20 mg PO BID [facility] Last Admin: 10/24/18 17:50 Dose: 20 mg Hydralazine HCl (Apresoline) 25 mg PO BID [facility] Last Admin: 10/24/18 17:49 Dose: 25 mg Iron Sucrose 200 mg/ Sodium (Chloride) 110 mls @ 110 mls/hr IVPB DAILY [facility] Stop: 10/28/18 10:59 Last Admin: 10/25/18 09:36 Dose: 110 mls/hr Sodium Chloride (Sodium Chloride 0.9%) 1,000 mls @ 75 mls/hr IV .[id number] [facility] Levothyroxine Sodium (Synthroid) 150 mcg PO ACB [facility] Last Admin: 10/24/18 08:48 Dose: 150 mcg Losartan Potassium (Cozaar) 25 mg PO DAILY [facility] Last Admin: 10/24/18 09:18 Dose: 25 mg Ondansetron HCl (Zofran Inj) 4 mg IVP Q4H PRN PRN Reason: Nausea/Vomiting Pantoprazole Sodium (Protonix Ec Tab) 40 mg PO 0600 [facility] Last Admin: 10/25/18 05:14 Dose: Not Given Polyethylene Glycol (Miralax) 17 gm PO DAILY [facility] Tamsulosin HCl (Flomax) 0.4 mg PO DAILY [facility] - Labs Labs: 10/25/18 06:50 10/25/18 06:50 PT 12.1 SECONDS (9.4-12.5) 10/21/18 17:04 INR 1.09 10/21/18 17:04 APTT 30.3 Seconds (26.9-38.3) 10/21/18 17:04 Assessment and Plan (1) CKD (chronic kidney disease) stage 3, GFR 30-59 ml/min Assessment & Plan: - Continue to monitor, electrolyte and volume status is stable - Continue with Drisdol, 50K U q week - Hold Lasix BID for now Status: Chronic (2) Anemia Assessment & Plan: H/H stable s/p 3 U PRBC after GIB - At goal for Anemia of CKD; - Recommend stopping venofer - GI doing endoscopy today Status: Acute (3) Hypertensive chronic kidney disease with stage 1 through stage 4 chronic kidney disease, or unspecified chronic kidney disease Assessment & Plan: BP controlled at 120/63 right now - Continue on Hydralazine, Cozaar, Status: Chronic (4) Chronic kidney disease-mineral and bone disorder Status: Chronic (5) CHF (congestive heart failure) Assessment & Plan: - Lasix 20 BID on hold Status: Chronic <Foreign Arzate - Last Filed: 10/26/18 08:08> Objective - Vital Signs/Intake and Output Vital Signs (last 24 hours): Temp Pulse Resp BP Pulse Ox 98.4 F 82 20 134/66 98 10/26/18 06:00 10/26/18 06:00 10/26/18 06:00 10/26/18 06:00 10/26/18 06:00 Intake and Output: 10/26/18 10/26/18 06:59 18:59 Intake Total 360 Output Total 600 Balance -240 - Medications Medications: Current Medications Acetaminophen (Tylenol 325mg Tab) 650 mg PO Q6 PRN PRN Reason: TEMP>=99.5F Acetaminophen (Tylenol 650 Mg Supp) 650 mg RC Q6H PRN PRN Reason: TEMP>=99.5F Acetylcysteine (Acetylcysteine 20%) 3 ml PO BID [facility] Last Admin: 10/25/18 17:16 Dose: Not Given Amiodarone HCl (Cordarone) 200 mg PO DAILY [facility] Last Admin: 10/25/18 13:15 Dose: 200 mg Atorvastatin Calcium (Lipitor) 20 mg PO DIN [facility] Last Admin: 10/25/18 17:15 Dose: 20 mg Docusate Sodium (Colace) 100 mg PO TID [facility] Last Admin: 10/25/18 17:15 Dose: 100 mg Ergocalciferol (Drisdol 50,000 Intl Units Cap) 1 cap PO Q7D [facility] Last Admin: 10/24/18 17:34 Dose: 1 cap Finasteride (Proscar) 5 mg PO DAILY [facility] Last Admin: 10/25/18 13:15 Dose: 5 mg Fluconazole (Diflucan) 100 mg PO DAILY [facility]; Protocol Furosemide (Lasix) 20 mg PO BID [facility] Last Admin: 10/25/18 12:38 Dose: Not Given Hydralazine HCl (Apresoline) 25 mg PO BID [facility] Last Admin: 10/25/18 17:15 Dose: 25 mg Iron Sucrose 200 mg/ Sodium (Chloride) 110 mls @ 110 mls/hr IVPB DAILY [facility] Stop: 10/28/18 10:59 Last Admin: 10/25/18 09:36 Dose: 110 mls/hr Levothyroxine Sodium (Synthroid) 150 mcg PO ACB [facility] Last Admin: 10/26/18 06:47 Dose: 150 mcg Losartan Potassium (Cozaar) 25 mg PO DAILY [facility] Last Admin: 10/25/18 13:15 Dose: 25 mg Ondansetron HCl (Zofran Inj) 4 mg IVP Q4H PRN PRN Reason: Nausea/Vomiting Pantoprazole Sodium (Protonix Ec Tab) 40 mg PO 0600 [facility] Last Admin: 10/26/18 06:47 Dose: 40 mg Polyethylene Glycol (Miralax) 17 gm PO DAILY [facility] Last Admin: 10/25/18 13:14 Dose: 17 gm Tamsulosin HCl (Flomax) 0.4 mg PO DAILY [facility] Last Admin: 10/25/18 13:16 Dose: 0.4 mg - Labs Labs: 10/26/18 07:00 10/25/18 06:50 PT 12.1 SECONDS (9.4-12.5) 10/21/18 17:04 INR 1.09 10/21/18 17:04 APTT 30.3 Seconds (26.9-38.3) 10/21/18 17:04 Assessment and Plan (1) CKD (chronic kidney disease) stage 3, GFR 30-59 ml/min Status: Chronic (2) Anemia Status: Acute (3) Hypertensive chronic kidney disease with stage 1 through stage 4 chronic kidney disease, or unspecified chronic kidney disease Status: Chronic (4) Chronic kidney disease-mineral and bone disorder Status: Chronic (5) CHF (congestive heart failure) Status: Chronic Attending/Attestation - Attestation I have personally seen and examined this patient.: Yes I have fully participated in the care of the patient.: Yes I have reviewed all pertinent clinical information, including history, physical exam and plan: Yes Notes (Text): Patient seen and examined; I agree with the resident's note as above with the following additons/edits: 83 yo M w/ pmh of htn, CAD s/p CABG, s/p bioprosthetic AVR, CHF w/ preserved EF/pulm htn, and CKD IIIB, admitted with symptomatic anemia; Hgb currently stable; patient seen before EGD later today that did not show any source of bleeding; currently on IV iron; consider repeating iron studies since patient has received 3 u prbc (may not need further iron infusions); Renal function stable; relatively stable volume and electrolyte status; placed on IVF in anticipation of cardiac cath which was subsequently postponed till Thursday; will hold IVF today and restart PO lasix 20 mg bid given pulm htn and tendency for becoming edematous; should hold diuretics and restart IVF tomorrow night for contrast prophylaxis with goal of keeping patient in positive sodium balance; Hypertensive CKD with BP controlled; continue current meds;
[2018-10-25] MEDS ORDERED: Sodium Chloride 0.9% 1,000 ML IV SCH ×2 (10:30→11:45)
[2018-10-25] MEDS ORDERED: Etomidate 20 mg/10ml Inj IV ONE ×2 (11:12→11:13)
[2018-10-25] MEDS: Acetylcysteine 20% Inhal Soln (4ml) PO SCH ×2 (12:37→17:16)
[2018-10-25] MEDS: POLYETHYLENE GLYCOL 3350 17 GM/Dose PACKET PO SCH (13:14)
[2018-10-25] MEDS: Levothyroxine 150 MCG TAB PO SCH (13:15)
--- NOTE | 2018-10-25 15:42 | PN ---
DATE: 10/25/2018 SUBJECTIVE: The patient is in room 271, bed 1. Overnight nurse's notes were reviewed. No adverse events were documented except the patient was scheduled and will be going and has been undergoing endoscopy followed by cardiac catheterization. The patient was evaluated during these procedures. Overnight nurse's notes were reviewed. No adverse events were documented, notified or called for. The patient did require milk of magnesia for constipation and the patient had a good bowel movement early this morning. OBJECTIVE: VITAL SIGNS: In the last 12-24 hour T-max 98.3. Telemetry shows sinus rhythm with some PVCs 57-63 heart rate, respiration 19, O2 sat 96%. Blood pressure 123/65. INTAKE/OUTPUT: Intake 2740, output 2500. HEENT: Head is normocephalic, atraumatic. Eyes; shows pinkish conjunctivae. Anicteric sclerae. No oropharyngeal lesion. NECK: No neck rigidity. CHEST: Kyphosis. Positive median sternotomy surgical scar. LUNGS: Shows no audible crackle, rales, or wheezing. Occasional rhonchi noted bilaterally. CARDIOVASCULAR: S1, S2, regular rhythm. Positive systolic murmur left sternal border, right second intercostal space, left second intercostal space. ABDOMEN: Soft. Positive bowel sound. No palpable hepatosplenomegaly. GENITALIA: Male. RECTAL: Deferred. EXTREMITIES: Shows no pitting edema, no calf tenderness, no Homans' sign. NEUROLOGIC: The patient is alert, awake, oriented x3. He is able to move upper and lower extremity without assistance. Gait examination is not tested. VASCULAR: Palpable pulses. Cranial nerves II through XII limited. MUSCULOSKELETAL: As per the body mass index. DIAGNOSTIC DATA: On 10/25/2018; CBC shows a hemoglobin/hematocrit of 10.1/31.0. Chemistry is abnormal for creatinine of 1.8 which has come down significantly. IMPRESSION: 1. Severe symptomatic anemia with symptoms of fatigue, chest pain. 2. History of coronary artery disease, coronary artery bypass graft. 3. Acute right-sided diastolic congestive heart failure with elevated ProBNP and elevated right ventricular systolic pressure with pulmonary hypertension. 4. Severe aortic stenosis. 5. Acute kidney injury and acute renal failure with underlying chronic kidney disease stage III. 6. Questionable gastrointestinal bleeding with fecal occult blood positive. 7. Most probably acute blood loss anemia secondary to gastrointestinal bleeding, exact etiology unknown. 8. History of hypothyroidism. 9. History of hyperlipidemia. 10. Iron-deficiency normocytic anemia. PLAN: At this time, we will review the patient's endoscopy results and cardiac catheterization results and further, the patient will be continued on the medications as per the MAR. In addition, the patient's further recommendations will be dependent upon the recommendation by GI and Cardiology and also dependent upon the esophagogastroduodenoscopy and cardiac catheterization report. The patient will be continued on all the medications as per the MAR, which was reviewed. Dictated and electronically signed, not read. Surinder Han MD
--- NOTE | 2018-10-25 17:43 | PN ---
DATE: 10/25/2018 CARDIOLOGY FOLLOWUP SUBJECTIVE: The patient's cardiac catheterization was canceled because of the urgent need for endoscopy and colonoscopy to look for a source of bleeding. The patient is comfortable and tolerated the GI workup well. PHYSICAL EXAMINATION VITAL SIGNS: Blood pressure is 143/67, heart rate is in the 60s. NECK: Negative JVD. CARDIOPULMONARY: Heart reveals a 2/6 systolic ejection murmur. LUNGS: Without rales. EXTREMITIES: Without edema. LABORATORY DATA: Hemoglobin is 10. BUN and creatinine is 18 and 1.8. IMPRESSION 1. Anemia. 2. No obvious source of gastrointestinal bleeding. 3. Renal insufficiency. 4. Critical aortic stenosis. PLAN: Given these findings, we will monitor the patient for the next 24 hours. If he remains stable, we will consider cardiac catheterization on Thursday morning. Rod Gagnon MD
[2018-10-26] MEDS: Sodium Chloride 0.9% 1,000 ML IV SCH ×2 (03:45→10:53)
[2018-10-26] MEDS: Levothyroxine 150 MCG TAB PO SCH (06:47)
[2018-10-26] MEDS: Pantoprazole 40 mg EC Tab PO SCH (06:47)
[2018-10-26 07:21] LABS: BASO # 0.03 K/mm3 (0.0-2.0); BASO % 0.3 % (0.0-3.0); EOS # 0.2 (0.0-0.7); EOS % 1.8 % (1.5-5.0); HEMOGLOBIN 9.8 g/dL (14.0-18.0); LYMPH # 1.1 (1.2-3.4); LYMPH % 12.7 % (22.0-35.0); MEAN CELL VOLUME 93.3 fl (80.0-105.0); MEAN CORPUSCULAR HEMOGLOBIN 29.9 pg (25.0-35.0); MEAN PLATELET VOLUME 8.9 fl (7.0-11.0); MONO # 1.5 (0.1-0.6); RBC 3.28 10^6/uL (3.5-6.1); RED CELL DISTRIBUTION WIDTH 15.6 % (11.5-14.5); WHITE BLOOD COUNT 8.7 10^3/uL (4.5-11.0)
[2018-10-26 07:26] LABS: ALB/GLOB RATIO 1.2 (1.1-1.8); ALBUMIN 3.4 g/dL (3.0-4.8); BILIRUBIN,DIRECT 0.1 mg/dL (0.0-0.4)
[2018-10-26] MEDS ORDERED: Sodium Chloride 0.9% 1,000 ML IV SCH (10:45)
[2018-10-26 10:53] LABS: BASO # 0.02 K/mm3 (0.0-2.0); BASO % 0.2 % (0.0-3.0); EOS # 0.1 (0.0-0.7); EOS % 0.7 % (1.5-5.0); HEMOGLOBIN 10.3 g/dL (14.0-18.0); LYMPH # 1.2 (1.2-3.4); LYMPH % 13.5 % (22.0-35.0); MEAN CELL VOLUME 92.9 fl (80.0-105.0); MEAN CORPUSCULAR HEMOGLOBIN 30.5 pg (25.0-35.0); MEAN CORPUSCULAR HGB CONC 32.8 g/dl (31.0-37.0); MEAN PLATELET VOLUME 8.7 fl (7.0-11.0); MONO # 1.2 (0.1-0.6); MONO % 13.4 % (1.0-6.0); RBC 3.38 10^6/uL (3.5-6.1); RED CELL DISTRIBUTION WIDTH 15.5 % (11.5-14.5); WHITE BLOOD COUNT 8.7 10^3/uL (4.5-11.0)
--- NOTE | 2018-10-26 10:55 | PCM.RRT ---
WAREHOUSE ENGINEER Nurse Assessment - Situation Date: 10/26/18 Time WAREHOUSE ENGINEER was called: 10:25 WAREHOUSE ENGINEER Responder Arrival Time: 10:25 WAREHOUSE ENGINEER Location:: [address] [place] [address] Room Number: [id number] WAREHOUSE ENGINEER Reason for Call: Chest Pain WAREHOUSE ENGINEER Called By: Physician - IV IV Inserted during WAREHOUSE ENGINEER?: No - Respiratory Oxygen Delivery Method: Room Air Received Nebulizer Treatments:: No Was the Patient Ventilated with Bag/Mask 100% O2?: No Secretions Suctioned?: No Was the Patient Intubated?: No Was the Patient Placed on a Ventilator?: No - Medication Medications Administered During WAREHOUSE ENGINEER: Aspirin 325 mg 1020 AM. Nitropaste SL 1027 AM. Nitropaste SL 1034 AM. 0.9 NS at 75 cc/hr 1039 AM - Diagnostic Test Ordered EKG: Yes Chest X-Ray: Yes CT Scan: No - Stat Labs Ordered WAREHOUSE ENGINEER Stat Labs Ordered: CBC, BMP, PT/PTT, TROPONIN CPR started during WAREHOUSE ENGINEER?: No - Vital Signs Vital Sign: Rapid Response Vital Sign Blood Pressure 177/71 Pulse Rate 70 Respiratory Rate 18 Oxygen Saturation 98 - Finger Stick Blood Glucose Finger Stick Blood Glucose: 211 - Time WAREHOUSE ENGINEER Ended Time WAREHOUSE ENGINEER Ended: 10:40 - Vital Signs at end of WAREHOUSE ENGINEER Vital Signs at end of WAREHOUSE ENGINEER: Rapid Response End Vital Sign Blood Pressure 133/58 Pulse Rate 84 Respiratory Rate 18 O2 Sat by Pulse Oximetry 95 - Recommendations Notifications: Attending Physician, Consultations, Family or Designated Caregiver I.Reason for WAREHOUSE ENGINEER - A) Acute Change in Patient: (Select all that apply): Chest Pain Subjective: Patient complaining of chest pain while on floor. WAREHOUSE ENGINEER called overhead and medical staff responded appropriately. Upon entering room patient was being evaluated and managed by Dr. Conrad at bedside. Patient was noted to have elevated BP of SBP 170s and DBP 70s with concurrent chest discomfort. Nitro tab 0.4mg was ordered and given to patient x2 with 5 minute interval. Patient BP responded by lowering to 120/70. Chest pain improved. During rapid EKG was performed and reviewed amongst previous EKG in his medical records. Cardiology with Dr. Gagnon was contacted and updated regarding the patient's clinical status. Orders were given for IV hydration and NPO. Patient to go for [facility] today. Dr. Han, primary physician was notified and updated regarding patient's acute change in clinical course by resident Dr. Conrad. - Neurological Status (Select all that apply): Alert, Responsive - Respiratory Oxygen Delivery Method: Room Air - Head Head Exam: ATRAUMATIC, NORMAL INSPECTION, NORMOCEPHALIC - Eyes Eye Exam: EOMI, PERRL - Respiratory Exam Respiratory Exam: Clear to Ausculation Bilateral, NORMAL BREATHING PATTERN - Cardiovascular Exam Cardiovascular Exam: REGULAR RHYTHM, +S1, +S2 - GI/Abdominal Exam GI & Abdominal Exam: Soft, Normal Bowel Sounds - Neurological Exam Neurological Exam: Alert, Awake Additional exam: motor and sensory grossly intact - Extremities Exam Extremities Exam: Full ROM. absent: Pedal Edema Plan - Assessment of Findings&Treatment Plan Chest Pain - EKG stat - CXR stat - Nitro tab 0.4mg x2 given during WAREHOUSE ENGINEER - Maintain HDS, maintain MAP >65mmHg - Supplemental O2 goal SaO2 >90% - Primary physician Dr. Han contacted and updated by Resident [facility] with Dr. Gagnon contacted - Started patient on NS @100 mL/Hr - Make Patient NPO - Plan for LHC today with Dr. Gagnon
--- NOTE | 2018-10-26 10:58 | RAD ---
Date of service: 10/26/2018 HISTORY: RAPID RESPONSE/CHEST PAINS COMPARISON: 10/21/2018 FINDINGS: LUNGS: No active pulmonary disease. PLEURA: No significant pleural effusion identified, no pneumothorax apparent. CARDIOVASCULAR: There is atherosclerotic calcification of the thoracic aortic arch. Normal heart size. Sternotomy wires. No pulmonary vascular congestion. OSSEOUS STRUCTURES: No significant abnormalities. VISUALIZED UPPER ABDOMEN: Normal. OTHER FINDINGS: None. IMPRESSION: No active disease.
[2018-10-26 11:03] LABS: CALCIUM 8.9 mg/dL (8.4-10.5)
[2018-10-26] MEDS ORDERED: Potassium Chloride 20 mEq ER Tab PO ONE (11:08)
[2018-10-26 11:09] LABS: TROPONIN I 0.02 ng/mL
--- NOTE | 2018-10-26 11:26 | PCM.RRT ---
<Remi Croft - Last Filed: 10/26/18 11:20> PRINTS AND DRAWINGS CURATOR Nurse Assessment - Situation Date: 10/26/18 Time PRINTS AND DRAWINGS CURATOR was called: 10:25 PRINTS AND DRAWINGS CURATOR Responder Arrival Time: 10:25 PRINTS AND DRAWINGS CURATOR Location:: [address] [place] [address] Room Number: [id number] PRINTS AND DRAWINGS CURATOR Reason for Call: Chest Pain PRINTS AND DRAWINGS CURATOR Called By: Physician - IV IV Inserted during PRINTS AND DRAWINGS CURATOR?: No - Respiratory Oxygen Delivery Method: Room Air Received Nebulizer Treatments:: No Was the Patient Ventilated with Bag/Mask 100% O2?: No Secretions Suctioned?: No Was the Patient Intubated?: No Was the Patient Placed on a Ventilator?: No - Medication Medications Administered During PRINTS AND DRAWINGS CURATOR: Aspirin 325 mg 1020 AM. Nitropaste SL 1027 AM. Nitropaste SL 1034 AM. 0.9 NS at 75 cc/hr 1039 AM - Diagnostic Test Ordered EKG: Yes Chest X-Ray: Yes CT Scan: No - Stat Labs Ordered PRINTS AND DRAWINGS CURATOR Stat Labs Ordered: CBC, BMP, PT/PTT, TROPONIN CPR started during PRINTS AND DRAWINGS CURATOR?: No - Vital Signs Vital Sign: Rapid Response Vital Sign Blood Pressure 177/71 Pulse Rate 70 Respiratory Rate 18 Oxygen Saturation 98 - Finger Stick Blood Glucose Finger Stick Blood Glucose: 211 - Time PRINTS AND DRAWINGS CURATOR Ended Time PRINTS AND DRAWINGS CURATOR Ended: 10:40 - Vital Signs at end of PRINTS AND DRAWINGS CURATOR Vital Signs at end of PRINTS AND DRAWINGS CURATOR: Rapid Response End Vital Sign Blood Pressure 133/58 Pulse Rate 84 Respiratory Rate 18 O2 Sat by Pulse Oximetry 95 - Recommendations Notifications: Attending Physician, Consultations, Family or Designated Caregiver I.Reason for PRINTS AND DRAWINGS CURATOR - A) Acute Change in Patient: (Select all that apply): Staff member or family is worried about patient - Neurological Status (Select all that apply): Alert, Responsive, Oriented, Verbal, Follows Commands - Respiratory Oxygen Delivery Method: Room Air - Constitutional Appears: Non-toxic, No Acute Distress - Head Head Exam: ATRAUMATIC, NORMOCEPHALIC - Eyes Eye Exam: EOMI, PERRL - Respiratory Exam Respiratory Exam: Clear to Ausculation Bilateral, NORMAL BREATHING PATTERN - Cardiovascular Exam Cardiovascular Exam: REGULAR RHYTHM, RRR, +S1, +S2. absent: Gallop, Rubs, Murmur - GI/Abdominal Exam GI & Abdominal Exam: Soft, Normal Bowel Sounds. absent: Guarding, Tenderness - Neurological Exam Neurological Exam: Alert, Awake, Oriented x3 - Extremities Exam Extremities Exam: Full ROM, Normal Inspection Plan - Assessment of Findings&Treatment Plan PRINTS AND DRAWINGS CURATOR called at 10:25 for concern of patient's complaint of worsening chest pain. PRINTS AND DRAWINGS CURATOR response team arrived one minute after PRINTS AND DRAWINGS CURATOR was called. Patient was seen and examined, history obtained from other house staff and RN at bedside. Patient appears to be in no acute respiratory distress and is able to protect airway. STAT EKG, CXR, labs including CBC, CMP, Troponin were all ordered and obtained. EKG showed new, partial LBBB. ASA 325, NG sublingual tablets given. Dr. Gagnon notified, will plan to move his scheduled cardiac cath until this afternoon. House staff working with Dr. Han were present for PRINTS AND DRAWINGS CURATOR and notified Dr. Han of the situation. <Amy Lopez - Last Filed: 10/26/18 14:00> PRINTS AND DRAWINGS CURATOR Nurse Assessment - Vital Signs Vital Sign: Rapid Response Vital Sign Blood Pressure 177/71 Pulse Rate 70 Respiratory Rate 18 Oxygen Saturation 98 - Vital Signs at end of PRINTS AND DRAWINGS CURATOR Vital Signs at end of PRINTS AND DRAWINGS CURATOR: Rapid Response End Vital Sign Blood Pressure 133/58 Pulse Rate 84 Respiratory Rate 18 O2 Sat by Pulse Oximetry 95 Attending/Attestation - Attestation I have personally seen and examined this patient.: Yes I have fully participated in the care of the patient.: Yes I have reviewed all pertinent clinical information, including history, physical exam and plan: Yes Notes (Text): 10/26/18 13:53 Attending note; Patient is a 83 year old male with PMHx CAD s/p CABG, CKD, HTN, anemia, hyp othyroidism, BPH who is initially admitted for chest pain and weakness. Patient seen and examined during PRINTS AND DRAWINGS CURATOR. Rapid response was called secondary to chest pain. Patient is currently alert and awake. Vitals stable. Stat EKG showed Nonspecific ST-T changes and incomplete left bundle branch block. Patient was given sublingual nitro. Case discussed with microsoft net developer in detail. Plan for cardiac catheter today. PMD informed by resident. Further plan of care per PMD and cardiology.
[2018-10-26] MEDS: Acetylcysteine 20% Inhal Soln (4ml) PO SCH ×2 (11:30→18:28)
--- NOTE | 2018-10-26 11:46 | CP.PCM.PN ---
<Pedro Luis Berman - Last Filed: 10/26/18 11:43> Subjective - Date & Time of Evaluation Date of Evaluation: 10/26/18 Time of Evaluation: 06:00 - Subjective Subjective: Patient seen and evaluated bedside. Patient had rapid response called around 10:30 am for chest pain. Labs done and drawed, EKG done. Cardiology was informed and plan of cardiac cath tomorrow. Objective - Vital Signs/Intake and Output Vital Signs (last 24 hours): Temp Pulse Resp BP Pulse Ox 98.4 F 82 20 134/66 98 10/26/18 06:00 10/26/18 06:00 10/26/18 06:00 10/26/18 06:00 10/26/18 06:00 Intake and Output: 10/26/18 10/26/18 06:59 18:59 Intake Total 360 Output Total 600 Balance -240 - Medications Medications: Current Medications Acetaminophen (Tylenol 325mg Tab) 650 mg PO Q6 PRN PRN Reason: TEMP>=99.5F Acetaminophen (Tylenol 650 Mg Supp) 650 mg RC Q6H PRN PRN Reason: TEMP>=99.5F Acetylcysteine (Acetylcysteine 20%) 3 ml PO BID [facility] Last Admin: 10/25/18 17:16 Dose: Not Given Amiodarone HCl (Cordarone) 200 mg PO DAILY [facility] Last Admin: 10/25/18 13:15 Dose: 200 mg Atorvastatin Calcium (Lipitor) 20 mg PO DIN [facility] Last Admin: 10/25/18 17:15 Dose: 20 mg Docusate Sodium (Colace) 100 mg PO TID [facility] Last Admin: 10/25/18 17:15 Dose: 100 mg Ergocalciferol (Drisdol 50,000 Intl Units Cap) 1 cap PO Q7D [facility] Last Admin: 10/24/18 17:34 Dose: 1 cap Finasteride (Proscar) 5 mg PO DAILY [facility] Last Admin: 10/25/18 13:15 Dose: 5 mg Fluconazole (Diflucan) 100 mg PO DAILY [facility]; Protocol Furosemide (Lasix) 20 mg PO BID [facility] Last Admin: 10/26/18 10:47 Dose: Not Given Hydralazine HCl (Apresoline) 25 mg PO BID [facility] Last Admin: 10/26/18 10:46 Dose: Not Given Iron Sucrose 200 mg/ Sodium (Chloride) 110 mls @ 110 mls/hr IVPB DAILY [facility] Stop: 10/28/18 10:59 Last Admin: 10/26/18 10:53 Dose: Not Given Sodium Chloride (Sodium Chloride 0.9%) 1,000 mls @ 100 mls/hr IV .Q10H [facility] Last Admin: 10/26/18 10:53 Dose: 100 mls/hr Levothyroxine Sodium (Synthroid) 150 mcg PO ACB [facility] Last Admin: 10/26/18 06:47 Dose: 150 mcg Losartan Potassium (Cozaar) 25 mg PO DAILY [facility] Last Admin: 10/26/18 10:47 Dose: Not Given Ondansetron HCl (Zofran Inj) 4 mg IVP Q4H PRN PRN Reason: Nausea/Vomiting Pantoprazole Sodium (Protonix Ec Tab) 40 mg PO 0600 [facility] Last Admin: 10/26/18 06:47 Dose: 40 mg Polyethylene Glycol (Miralax) 17 gm PO DAILY [facility] Last Admin: 10/25/18 13:14 Dose: 17 gm Tamsulosin HCl (Flomax) 0.4 mg PO DAILY [facility] Last Admin: 10/26/18 10:47 Dose: Not Given - Labs Labs: 10/26/18 10:40 10/26/18 10:40 PT 12.1 SECONDS (9.4-12.5) 10/21/18 17:04 INR 1.09 10/21/18 17:04 APTT 30.9 Seconds (26.9-38.3) 10/26/18 10:40 - Head Exam Head Exam: ATRAUMATIC, NORMAL INSPECTION, NORMOCEPHALIC - Eye Exam Eye Exam: Normal appearance - Respiratory Exam Respiratory Exam: Clear to Ausculation Bilateral, NORMAL BREATHING PATTERN - Cardiovascular Exam Cardiovascular Exam: REGULAR RHYTHM - GI/Abdominal Exam GI & Abdominal Exam: Soft Assessment and Plan - Assessment and Plan (Free Text) Plan: (1) CKD (chronic kidney disease) stage 3, GFR 30-59 ml/min Status: Chronic (2) Anemia EGD done yesterday did not show any source of active bleed HgB 11.6 stable Status: Acute (3) Hypertensive chronic kidney disease with stage 1 through stage 4 chronic kidney disease, or unspecified chronic kidney disease Status: Chronic (4) Chronic kidney disease-mineral and bone disorder Status: Chronic (5) CHF (congestive heart failure) Patient will undergo cardiac cath tomorrow with Dr. Gagnon Patient had chest pain today, nitro and aspirin given, EKG done, trops pending Status: Chronic <Foreign Arzate - Last Filed: 10/27/18 06:58> Objective - Vital Signs/Intake and Output Vital Signs (last 24 hours): Temp Pulse Resp BP Pulse Ox 98.3 F 66 19 120/62 97 10/27/18 06:00 10/27/18 06:00 10/27/18 06:00 10/27/18 06:00 10/27/18 06:00 Intake and Output: 10/26/18 10/27/18 18:59 06:59 Intake Total 1030 Output Total 1750 Balance -720 - Medications Medications: Current Medications Acetaminophen (Tylenol 325mg Tab) 650 mg PO Q6 PRN PRN Reason: TEMP>=99.5F Acetaminophen (Tylenol 650 Mg Supp) 650 mg RC Q6H PRN PRN Reason: TEMP>=99.5F Acetylcysteine (Acetylcysteine 20%) 3 ml PO BID [facility] Last Admin: 10/26/18 18:28 Dose: 3 ml Amiodarone HCl (Cordarone) 200 mg PO DAILY [facility] Last Admin: 10/26/18 11:44 Dose: 200 mg Atorvastatin Calcium (Lipitor) 20 mg PO DIN [facility] Last Admin: 10/26/18 18:28 Dose: 20 mg Docusate Sodium (Colace) 100 mg PO TID [facility] Last Admin: 10/26/18 18:28 Dose: 100 mg Ergocalciferol (Drisdol 50,000 Intl Units Cap) 1 cap PO Q7D [facility] Last Admin: 10/24/18 17:34 Dose: 1 cap Finasteride (Proscar) 5 mg PO DAILY [facility] Last Admin: 10/26/18 18:27 Dose: 5 mg Fluconazole (Diflucan) 100 mg PO DAILY [facility]; Protocol Last Admin: 10/26/18 18:27 Dose: 100 mg Furosemide (Lasix) 20 mg PO BID [facility] Last Admin: 10/26/18 18:27 Dose: 20 mg Hydralazine HCl (Apresoline) 25 mg PO BID [facility] Last Admin: 10/26/18 18:27 Dose: 25 mg Iron Sucrose 200 mg/ Sodium (Chloride) 110 mls @ 110 mls/hr IVPB DAILY [facility] Stop: 10/28/18 10:59 Last Admin: 10/26/18 22:23 Dose: 110 mls/hr Levothyroxine Sodium (Synthroid) 150 mcg PO ACB [facility] Last Admin: 10/27/18 06:34 Dose: 150 mcg Losartan Potassium (Cozaar) 25 mg PO DAILY [facility] Last Admin: 10/26/18 10:47 Dose: Not Given Ondansetron HCl (Zofran Inj) 4 mg IVP Q4H PRN PRN Reason: Nausea/Vomiting Pantoprazole Sodium (Protonix Ec Tab) 40 mg PO 0600 [facility] Last Admin: 10/27/18 06:48 Dose: 40 mg Polyethylene Glycol (Miralax) 17 gm PO DAILY [facility] Last Admin: 10/26/18 13:57 Dose: Not Given Tamsulosin HCl (Flomax) 0.4 mg PO DAILY [facility] Last Admin: 10/26/18 10:47 Dose: Not Given - Labs Labs: 10/26/18 10:40 10/26/18 10:40 PT 12.1 SECONDS (9.4-12.5) 10/21/18 17:04 INR 1.09 10/21/18 17:04 APTT 30.9 Seconds (26.9-38.3) 10/26/18 10:40 Assessment and Plan (1) CKD (chronic kidney disease) stage 3, GFR 30-59 ml/min Status: Chronic (2) Anemia Status: Acute (3) Hypertensive chronic kidney disease with stage 1 through stage 4 chronic kidney disease, or unspecified chronic kidney disease Status: Chronic (4) Chronic kidney disease-mineral and bone disorder Status: Chronic (5) CHF (congestive heart failure) Status: Chronic Attending/Attestation - Attestation I have personally seen and examined this patient.: Yes I have fully participated in the care of the patient.: Yes I have reviewed all pertinent clinical information, including history, physical exam and plan: Yes Notes (Text): Patient seen and examined; I agree with the resident's note as above with the following additions/edits: 83 yo M w/ pmh of htn, CAD s/p CABG, s/p bioprosthetic AVR, CHF w/ preserved EF/pulm htn, and CKD IIIB, admitted with symptomatic anemia; Patient with recurrence of chest pain today; was subsequently taken for cardiac cath this afternoon with finding of critical but patent bypass grafts; Renal function stable; given IVF prior to cath to prevent contrast nephropathy; will resume PO lasix 20 mg bid after cath (mild lower ext edema, stable, in the setting of pulm htn); HTN controlled, continue current meds; Anemia stable; cause of drop in hgb completely clear (AVM?); monitor periodically.
[2018-10-26] MEDS ORDERED: Lidocaine 2% Inj (20ml) ONE (12:45)
[2018-10-26] MEDS ORDERED: Iodixanol 320 MG/ML 100 ML BOTTLE IV ONE (12:46)
[2018-10-26] MEDS ORDERED: Iodixanol 320 MG/ML 200 ML BOTTLE IV ONE (12:46)
[2018-10-26] MEDS ORDERED: Sodium Bicarbonate (8.4%) 50 Meq Syringe IVP ONE (13:19)
[2018-10-26] MEDS: POLYETHYLENE GLYCOL 3350 17 GM/Dose PACKET PO SCH (13:57)
[2018-10-26] MEDS ORDERED: Midazolam 2 MG/2 ML VIAL ONE ×2 (14:26→14:58)
[2018-10-26] MEDS ORDERED: Eptifibatide 20 mg/10mL Inj IVP ONE (15:11)
--- NOTE | 2018-10-26 20:17 | CARDCATH ---
PROCEDURE DATE: 10/26/2018 CARDIAC CATHETERIZATION INDICATION: The patient presented with unstable angina, was found to have aortic stenosis on echocardiogram. Because of this, cardiac catheterization was recommended. PROCEDURE Right and left heart catheterization with coronary angiography, supra-aortic valvular injection, coronary angiography, left internal mammary artery angiogram, and saphenous vein graft angiogram. Right femoral artery was cannulated with 6-Estonian sheath. The right femoral vein was cannulated with a 7-Estonian sheath. There were no complications. I performed moderate sedation, which included the presence of an independent trained observer that assisted in monitoring the patient's level of consciousness and physiologic status. After administration of Versed and fentanyl, my intra service time was 45 minutes. The findings on catheterization included right heart measurements which included a mean right atrial pressure of 7 mmHg, RV pressure was 42/8 mmHg, and pulmonary artery pressure was 44/14 mmHg with a mean of 27 mmHg. Multiple attempts across the aortic valve was unsuccessful consistent with critical aortic stenosis, which was 77 mm peak gradient on echocardiogram. His coronary anatomy revealed a right dominant circulation. The RCA revealed critical stenosis in its ostium as well as in its proximal portion. There was a long stent in the midportion of the RCA. In addition, the PDA revealed to-and-fro consistent with a patent bypass graft. The left main artery was free of significant disease. The AV groove branch of the circumflex revealed 80% to 90% stenosis in the proximal portion. The obtuse marginal branch was occluded. The LAD was occluded in its midportion as well as critical lesions in the diagonal vessel. The WOODRUFF to the LAD was found to be patent and provided good antegrade flow to the mid and distal LAD. There was a Y saphenous vein graft to the diagonal and obtuse marginal branches, which were both found to be patent and provided good antegrade flow. The saphenous vein graft to the RCA was found to be patent and provided good antegrade flow. Manual compression was used to close the femoral artery site. The patient tolerated the procedure well. In summary, the procedure revealed critical aortic stenosis. Mild pulmonary hypertension. LV function on echocardiogram revealed an EF of 71%. No aortic insufficiency. Triple-vessel CAD. Patent SVG to the RCA, patent Y graft to the diagonal and circumflex, obtuse marginal branch. Patent WOODRUFF to the LAD. Given these findings, the patient will continue with medical therapy. We will evaluate the patient for possible TAVR, which can be done electively. We need to follow his creatinine prior to evaluation for TAVR. Rod Gagnon MD
--- NOTE | 2018-10-26 20:52 | PN ---
DATE: 10/26/2018 SUBJECTIVE: The patient is seen in room 271, bed 1. The patient is out of bed, ambulating in the bathroom. The patient was seen and examined early in the morning, but later on the patient developed some chest pain. Rapid response was called. Cardiology, Dr. Gagnon, was notified. The patient is now going to be scheduled for cardiac catheterization today. The patient was given nitroglycerin and chest pain was relieved. REVIEW OF SYSTEMS: A 14-system review was done, pertinent positives and negatives dictated above. PHYSICAL EXAMINATION: VITAL SIGNS: T-max 98.4 to 98.9. Telemetry shows normal sinus rhythm; 84, 79, 68, 89. Respirations 18 to 20. O2 sat is mid to high 90% oxygen saturation. Blood pressure, 138/84 and 140/90. GENERAL: The patient is seen sitting up in the bed when the patient was examined early in the morning as mentioned around 08:15. HEENT: Head, normocephalic and atraumatic. Pinkish pale conjunctivae. Anicteric sclerae. No oropharyngeal lesion. NECK: No neck rigidity. CHEST: Kyphosis, median sternotomy surgical scar. LUNGS: Questionable decreased breath sound at the bases. No rales or crackles. Occasional rhonchi in the upper lung mderano anteriorly. CARDIOVASCULAR: S1, S2. Positive systolic murmur at the left sternal border, right second intercostal space, left second intercostal space. ABDOMEN: Soft. Positive bowel sounds. No palpable hepatosplenomegaly. GENITALIA: Male. RECTAL: Deferred. EXTREMITIES: Complete resolution of the pitting edema of the lower extremities. MUSCULOSKELETAL: As per the body mass index. NEUROLOGIC: The patient is alert, awake, responsive. He is able to move upper and lower extremities without assistance. Gait examination is independent. VASCULAR: Palpable pulses. LABORATORY DATA: Diagnostics from 10/26/2018 was reviewed. Hemoglobin is 9 g plus and hematocrit is 28-29. Platelets are within normal limits. Chemistry, CMP, LFTs were reviewed. Renal function has improved significantly since admission. The patient's troponin is pending. Repeat EKG is pending. The patient's EGD report from yesterday was reviewed. IMPRESSION: 1. Most probable unstable angina with episodic chest pain. 2. History of coronary artery disease, coronary artery bypass graft. 3. Status post severe symptomatic anemia. 4. Questionable anemia secondary to gastrointestinal blood loss. 5. Mid esophageal candidiasis and esophageal thrush. 6. Gastritis. 7. Gastric polyp. 8. Status post packed red blood cell transfusion x3. 9. Anemia. 10. Hypertension. 11. Iron-deficiency anemia. 12. Questionable gastrointestinal bleeding with fecal occult blood positive. 13. Status post esophagogastroduodenoscopy. 14. History of hypothyroidism. 15. Status post acute kidney injury and chronic kidney disease (resolving). 16. Deconditioning. 17. Gait dysfunction. 18. History of hyperlipidemia. 19. Hypovitaminosis D. PLAN: At this time, the patient was given sublingual nitroglycerin. The patient has been ordered troponins, cardiac enzymes. Cardiology was contacted. The patient is going to be undergoing cardiac catheterization very soon today. The patient will be continued on GI, DVT prophylaxis. The patient will be continued on all the medications as per the MAR, which I reviewed. The patient's further management will be dependent upon the patient's clinical condition, hemodynamic status, as per the patient's diagnostic therapeutic intervention, as per the patient's diagnostic data, as per recommendation by Cardiology, Gastroenterology, and all the consultants and physician involved in the care of the patient. Dictated and electronically signed, not read. Surinder Han MD
--- NOTE | 2018-10-26 22:40 | CARD ---
APPROVED REPORT Date of service: 10/26/2018 EKG Measurement Heart [id number] MD [id number] <Conclusion> Sinus rhythm with 1st degree AV block Incomplete left bundle branch block NDSTT abnormalities Prolonged QT Abnormal ECG
[2018-10-27 03:47] VITALS: O2SAT 97
[2018-10-27] MEDS: Levothyroxine 150 MCG TAB PO SCH (06:34)
[2018-10-27] MEDS: Pantoprazole 40 mg EC Tab PO SCH (06:48)
[2018-10-27 07:36] LABS: BASO # 0.02 K/mm3 (0.0-2.0); BASO % 0.2 % (0.0-3.0); EOS # 0.1 (0.0-0.7); HEMOGLOBIN 10.5 g/dL (14.0-18.0); LYMPH % 10.3 % (22.0-35.0); MEAN CELL VOLUME 92.7 fl (80.0-105.0); MEAN CORPUSCULAR HEMOGLOBIN 30.8 pg (25.0-35.0); MEAN CORPUSCULAR HGB CONC 33.2 g/dl (31.0-37.0); MEAN PLATELET VOLUME 8.8 fl (7.0-11.0); MONO # 1.5 (0.1-0.6); MONO % 15.2 % (1.0-6.0); RBC 3.41 10^6/uL (3.5-6.1); RED CELL DISTRIBUTION WIDTH 15.4 % (11.5-14.5); WHITE BLOOD COUNT 9.9 10^3/uL (4.5-11.0)
[2018-10-27 09:35] LABS: ALB/GLOB RATIO 1.2 (1.1-1.8); ALBUMIN 3.8 g/dL (3.0-4.8); CALCIUM 8.8 mg/dL (8.4-10.5)
[2018-10-27] MEDS: Acetylcysteine 20% Inhal Soln (4ml) PO SCH (10:23)
[2018-10-27] MEDS: POLYETHYLENE GLYCOL 3350 17 GM/Dose PACKET PO SCH (10:26)
--- NOTE | 2018-10-27 10:36 | CP.PCM.DIS ---
Provider - Provider Date of Admission: 10/21/18 16:30 Attending physician: Surinder Han MD Consults: 10/21/18 13:44 Cardiology Consult Stat Comment: Consulting Provider: Rod Gagnon Consulting Physician: Rod Gagnon Reason for Consult: Lehtargy/ Chest Pain . 10/21/18 16:03 Nephrology Consult Stat Comment: Consulting Provider: Foreign Arzate Consulting Physician: Foreign Arzate Reason for Consult: CKD 10/21/18 17:08 Physician Consult Stat Comment: Consulting Provider: Johnny Wood Consulting Physician: Johnny Wood Reason for Consult: symptomatic anemia; +FOBT 10/23/18 20:30 TCU [Evaluation for TRCU] DAILY Comment: TCU Physician Instructions: TCU Reason For Exam: TCU 10/24/18 20:30 TCU [Evaluation for TRCU] DAILY Comment: TCU Physician Instructions: TCU Reason For Exam: TCU 10/25/18 20:30 TCU [Evaluation for TRCU] DAILY Comment: TCU Physician Instructions: TCU Reason For Exam: TCU 10/26/18 20:30 TCU [Evaluation for TRCU] DAILY Comment: TCU Physician Instructions: TCU Reason For Exam: TCU 10/27/18 20:30 TCU [Evaluation for TRCU] DAILY Comment: TCU Physician Instructions: TCU Reason For Exam: TCU 10/28/18 20:30 TCU [Evaluation for TRCU] DAILY Comment: TCU Physician Instructions: TCU Reason For Exam: TCU 10/29/18 20:30 TCU [Evaluation for TRCU] DAILY Comment: TCU Physician Instructions: TCU Reason For Exam: TCU 10/30/18 20:30 TCU [Evaluation for TRCU] DAILY Comment: TCU Physician Instructions: TCU Reason For Exam: TCU 10/31/18 20:30 TCU [Evaluation for TRCU] DAILY Comment: TCU Physician Instructions: TCU Reason For Exam: TCU 11/01/18 20:30 TCU [Evaluation for TRCU] DAILY Comment: TCU Physician Instructions: TCU Reason For Exam: TCU 11/02/18 20:30 TCU [Evaluation for TRCU] DAILY Comment: TCU Physician Instructions: TCU Reason For Exam: TCU Time Spent in preparation of Discharge (in minutes): 30 Diagnosis - Discharge Diagnosis (1) MIGUEL (acute kidney injury) Status: Acute (2) Chest pain Status: Acute (3) Aortic stenosis, severe Status: Acute (4) GI bleed Status: Acute (5) Symptomatic anemia Status: Acute (6) CHF (congestive heart failure) Status: Chronic (7) CKD (chronic kidney disease) stage 3, GFR 30-59 ml/min Status: Chronic Hospital Course - Lab Results Lab Results: Most Recent Lab Values WBC 9.9 10^3/uL (4.5-11.0) 10/27/18 07:25 RBC 3.41 10^6/uL (3.5-6.1) L 10/27/18 07:25 Hgb 10.5 g/dL (14.0-18.0) L 10/27/18 07:25 Hct 31.6 % (42.0-52.0) L 10/27/18 07:25 MCV 92.7 fl (80.0-105.0) 10/27/18 07:25 MCH 30.8 pg (25.0-35.0) 10/27/18 07:25 MCHC 33.2 g/dl (31.0-37.0) 10/27/18 07:25 RDW 15.4 % (11.5-14.5) H 10/27/18 07:25 Plt Count 369 10^3/uL (120.0-450.0) 10/27/18 07:25 MPV 8.8 fl (7.0-11.0) 10/27/18 07:25 Neut % (Auto) 73.3 % (50.0-68.0) H 10/27/18 07:25 Lymph % (Auto) 10.3 % (22.0-35.0) L 10/27/18 07:25 [place] % (Auto) 15.2 % (1.0-6.0) H 10/27/18 07:25 Eos % (Auto) 1.0 % (1.5-5.0) L 10/27/18 07:25 Baso % (Auto) 0.2 % (0.0-3.0) 10/27/18 07:25 Lymph # (Auto) 1.0 (1.2-3.4) L 10/27/18 07:25 [place] # (Auto) 1.5 (0.1-0.6) H 10/27/18 07:25 Eos # (Auto) 0.1 (0.0-0.7) 10/27/18 07:25 Baso # (Auto) 0.02 K/mm3 (0.0-2.0) 10/27/18 07:25 Absolute Neuts (auto) 7.22 (1.4-6.5) H 10/27/18 07:25 Retic Count 5.00 % (0.5-1.5) H 10/21/18 18:17 PT 12.1 SECONDS (9.4-12.5) 10/21/18 17:04 INR 1.09 10/21/18 17:04 APTT 30.9 Seconds (26.9-38.3) 10/26/18 10:40 Sodium 139 mmol/L (132-148) 10/27/18 07:25 Potassium 4.0 mmol/L (3.6-5.0) 10/27/18 07:25 Chloride 108 mmol/L (98-107) H 10/27/18 07:25 Carbon Dioxide 24 mmol/L (21-33) 10/27/18 07:25 Anion Gap 10 (10-20) 10/27/18 07:25 BUN 15 mg/dL (7-21) 10/27/18 07:25 Creatinine 1.7 mg/dl (0.8-1.5) H 10/27/18 07:25 Est GFR ( Amer) 47 10/27/18 07:25 Est GFR (Non-Af Amer) 39 10/27/18 07:25 POC Glucose (mg/dL) 211 mg/dL (65-110) H 10/26/18 10:26 Random Glucose 123 mg/dL (70-110) H 10/27/18 07:25 Hemoglobin A1c 6.1 % (4.2-6.5) 10/21/18 13:48 Calcium 8.8 mg/dL (8.4-10.5) 10/27/18 07:25 Phosphorus 3.5 mg/dL (2.5-4.5) 10/25/18 06:50 Magnesium 2.3 mg/dL (1.7-2.2) H 10/26/18 10:40 Iron 27 ug/dL (45-180) L 10/21/18 13:48 TIBC 352 ug/dL (261-462) 10/21/18 13:48 % Saturation 8 % (20-55) L 10/21/18 13:48 Transferrin 275.42 mg/dL (206-381) 10/21/18 13:48 Ferritin 27.4 ng/mL 10/21/18 18:17 Total Bilirubin 0.5 mg/dL (0.2-1.3) 10/27/18 07:25 Direct Bilirubin 0.1 mg/dL (0.0-0.4) 10/26/18 07:00 AST 37 U/L (17-59) 10/27/18 07:25 ALT 26 U/L (7-56) 10/27/18 07:25 Alkaline Phosphatase 93 U/L (38-126) 10/27/18 07:25 Troponin I 0.02 ng/mL D 10/26/18 10:40 NT-Pro-B Natriuret Pep 849 pg/mL (0-450) H 10/21/18 13:48 Total Protein 7.0 g/dL (5.8-8.3) 10/27/18 07:25 Albumin 3.8 g/dL (3.0-4.8) 10/27/18 07:25 Globulin 3.2 gm/dL 10/27/18 07:25 Albumin/Globulin Ratio 1.2 (1.1-1.8) 10/27/18 07:25 Triglycerides 81 mg/dL (35-160) 10/21/18 13:48 Cholesterol 107 mg/dL (130-200) L 10/21/18 13:48 LDL Cholesterol Direct 46 mg/dL (0-129) 10/21/18 13:48 HDL Cholesterol 44 mg/dL (29-60) 10/21/18 13:48 Prostate Specific Ag 0.7 ng/mL (0.00-2.5) 10/21/18 18:17 25-OH Vitamin D Total 23.1 NG/ML (30.0-100.0) L 10/24/18 06:50 Free T4 1.73 ng/dL (0.78-2.19) 10/21/18 13:48 Thyroxine (T4) 8.4 ug/dL (5.5-11.0) 10/21/18 18:17 TSH 3rd Generation 6.34 mIU/mL (0.46-4.68) H 10/21/18 13:48 Calcium (PTH Intact) 8.8 mg/dL (8.6-10.3) 10/24/18 06:50 PTH w/Ion &Tot Calcium 89 pg/mL (14-64) H 10/24/18 06:50 HIV 1&2 Ag/Ab, 4th Gen Nonreactive (Nonreactive) 10/25/18 13:00 Blood Type AB POSITIVE 10/21/18 18:17 Blood Type Confirm AB POSITIVE 10/21/18 18:43 Antibody Screen Negative 10/21/18 18:17 Crossmatch See Detail 10/21/18 18:17 BBK History Checked No verified bt 10/21/18 18:17 - Hospital Course Hospital Course: Mr Cao, 83 M, with PMHx CAD s/p CABG (2009), CHF-pEF (EF 71%), HTN, CKD, hypothyroidism, BPH c/o substernal chest pain x 3 days and weakness, admitted on 10/21/18. Hb was 7 on admission. He had dark stool recently for more than 1 week. Never seen GI doc before. He had symptomatic Anemia (7 on admission, 10 at baseline), currently stable at baseline s/p 3u pRBC. FOBT positive, he is put on protonix daily. Endoscopy on 10/25 showed Esophageal candidiasis, biopsied by brushing. He was started with diflucan. HIV screen was negative. Pt needs to follow with GI doc for Bx result On 10/26, he had another episode of chest pain. Rapid response were called, EKG showed incomplete LBBB. He underwent cardiac cathetrization the same day. Cath report showed that EF is 71%, triple vessel CAD, patent grafts to RCA/LAD/L circumflex/diagonal/obtuse margin. Howevere, he has critical aortic stenosis. He needs to follow up with sports anchor outpatient for possible TAVR. ASA and metoprolol are resumed by cardiology after cardiac catherterization. He was found to have MIGUEL on CKD3B. MIGUEL resolved. Renal US showed increased echogenicity likely medical renal disease. No hydronephrosis. Bladder US shows Post-void residual 39.4cc is normal but markedly increase from previous 2.49cc. PSA normal. Losartan is added by mamma logist. Pt needs to follow up with mamma logist fuel efficient automobile designer. Pt does not meet skilled PT criteria. He will be discharged home with meds to bed. Discharge instructions provided to patient, , and daughter. Discharge Exam - Head Exam Head Exam: ATRAUMATIC, NORMAL INSPECTION, NORMOCEPHALIC - Eye Exam Eye Exam: EOMI, Normal appearance, PERRL. absent: Scleral icterus Pupil Exam: NORMAL ACCOMODATION - ENT Exam ENT Exam: Mucous Membranes Moist - Neck Exam Additional comments: supple - Respiratory Exam Respiratory Exam: Clear to PA & Lateral, NORMAL BREATHING PATTERN, UNREMARKABLE. absent: Accessory Muscle Use - Cardiovascular Exam Cardiovascular Exam: REGULAR RHYTHM, +S1, +S2, Systolic Murmur - GI/Abdominal Exam GI & Abdominal Exam: Normal Bowel Sounds, Unremarkable. absent: Firm, Guarding - Extremities Exam Extremities exam: pedal pulses present - Back Exam Back exam: absent: CVA tenderness (L), CVA tenderness (R) - Neurological Exam Neurological exam: Alert, CN II-XII Intact, Normal Gait, Oriented x3, Reflexes Normal - Psychiatric Exam Psychiatric exam: Normal Affect, Normal Mood - Skin Skin Exam: Dry, Warm Discharge Plan - Discharge Medications Prescriptions: Aspirin [Adult Aspirin] 81 mg PO DAILY #30 tablet. Atorvastatin [Lipitor] 20 mg PO DIN #30 tab Ergocalciferol [Drisdol 50,000 Intl Units Cap] 1 cap PO Q7D #12 cap Finasteride [Proscar] 5 mg PO DAILY #30 tab Fluconazole [Diflucan] 100 mg PO DAILY #14 tab Furosemide [Lasix] 20 mg PO BID #60 tab hydrALAZINE [Apresoline] 25 mg PO BID #60 tab Levothyroxine [Synthroid] 150 mcg PO ACB #30 tab Losartan [Cozaar] 25 mg PO DAILY #30 tab Metoprolol Succinate [Toprol Xl] 25 mg PO DAILY #30 tab.er.24h Pantoprazole [Protonix EC Tab] 40 mg PO 0600 #30 ect Polyethylene Glycol 3350 [Miralax] 17 gm PO DAILY #30 packet Tamsulosin HCl [Flomax] 0.4 mg PO DAILY #30 cap.er.24h - Follow Up Plan Condition: STABLE Disposition: HOME/ ROUTINE Instructions: Heart Healthy Diet, Anemia Caused by Low Iron, Adult (DC), Cardiac Catheterization (DC), Anemia of Chronic Disease (DC), Treatment Choices for Angina (Chest Pain), Aortic Valve Replacement, Transcatheter (DC) Additional Instructions: MAY DISCHARGE AFTER CLEARED BY CARDIOLOGY FOLLOW UP ADVISED; - Follow up with your own primary care doctor, Dr Belle, within 1 week of hospital discharge. - Follow up with Dr Arzate, kidney doctor within 1 week for nephrology clearance for possible valve replacement - Follow up with Dr. Gagnon, sports anchor, in 2 weeks for possible aortic valve repair (TAVR) - Follow up with Dr. Wood, GI doctor in 4 weeks for biopsy result DISCHARGE MEDS As PER NEW SCRIPTS AND REVISED AMBULATORY ORDERS. GIVE NEW SCRIPTS TO PATIENT UPON DISCHARGE. Referrals: Johnny Wood MD [Staff Provider] - 1 Week Foreign Arzate MD [Staff Provider] - 1 Week Bee Chua MD [Family Provider] - 1 Week Rod Gagnon MD [Staff Provider] - 1 Week
--- NOTE | 2018-10-27 12:39 | PN ---
DATE: 10/27/2018 SUBJECTIVE: The patient is lying in bed, comfortable. He denies any first further chest pain. He underwent emergent cardiac catheterization yesterday for substernal chest pain. He was found to have triple-vessel coronary artery disease and critical aortic stenosis. He denies any melena or rectal bleeding. He denies nausea, vomiting. PHYSICAL EXAMINATION GENERAL: Elderly male lying in bed, in no acute distress. VITAL SIGNS: Reveal temperature of 98.3, blood pressure 136/61, heart rate of 75. HEENT: Reveal sclerae to be white. Conjunctivae pink. NECK: Supple. CHEST: Lungs are clear. HEART: Reveals regular rate and rhythm. There is a 3/6 systolic murmur. ABDOMEN: Soft, nontender. No mass. EXTREMITIES: Show no edema. LABORATORY DATA: Reveals hemoglobin 10.5, BUN 15, creatinine 1.7. IMPRESSION 1. Anemia. 2. Chest pain with triple-vessel coronary artery disease and critical aortic stenosis. 3. Chronic kidney disease. RECOMMENDATIONS 1. The patient is to have arrangements made for TAVR. 2. Follow serial hematocrits. Johnny Wood MD
--- NOTE | 2018-10-27 12:49 | PN ---
DATE: 10/27/2018 SUBJECTIVE: The patient is asymptomatic. PHYSICAL EXAMINATION: VITAL SIGNS: Stable. NECK: Negative JVD. LUNGS: Without rales. HEART: Reveal S1, S2 with a II/ systolic ejection murmur. EXTREMITIES: Without edema. Right groin site is stable. LABORATORY DATA: Hemoglobin is 10.5, BUN and creatinine is 15 and 1.7, glucose 123. IMPRESSION: 1. Recurrent dyspnea and chest pain. 2. Status post catheterization which revealed critical aortic stenosis, mild pulmonary hypertension normal left ventricular function, triple-vessel coronary artery disease with patent grafts. Given these findings, once the patient's hemoglobin is stable. The patient can be discharged. We will arrange for the patient to be followed up and have extensive discussion for possible TAVR of his aortic valve. Rod Gagnon MD
[2018-10-27 13:02] VITALS: BP 129/62; PULSE 64; RESP 18; TEMP 98
--- NOTE | 2018-10-27 21:30 | CP.PCM.PN ---
Objective - Vital Signs/Intake and Output Vital Signs (last 24 hours): Temp Pulse Resp BP Pulse Ox 98 F 64 18 129/62 97 10/27/18 12:00 10/27/18 12:00 10/27/18 12:00 10/27/18 12:00 10/27/18 06:00 - Labs Labs: 10/27/18 07:25 10/27/18 07:25 PT 12.1 SECONDS (9.4-12.5) 10/21/18 17:04 INR 1.09 10/21/18 17:04 APTT 30.9 Seconds (26.9-38.3) 10/26/18 10:40 Assessment and Plan (1) CKD (chronic kidney disease) stage 3, GFR 30-59 ml/min Status: Chronic (2) Anemia Status: Acute (3) Hypertensive chronic kidney disease with stage 1 through stage 4 chronic kidney disease, or unspecified chronic kidney disease Status: Chronic (4) Chronic kidney disease-mineral and bone disorder Status: Chronic (5) CHF (congestive heart failure) Status: Chronic
--- NOTE | 2018-10-28 08:15 | DS ---
PROGRESS NOTE AND DISCHARGE SUMMARY SUBJECTIVE: The patient is now seen in room 277, bed 2. The patient underwent cardiac catheterization yesterday, the results were reviewed. The patient's case was discussed with Cardiology. The patient was cleared for discharge. Overnight nurse's notes were reviewed. OBJECTIVE: VITAL SIGNS: T-max 98.7. Telemetry shows sinus rhythm, heart rate 72, 74, 78, and 84, respirations 18 to 20, and O2 sat is mid-to-high 90%. The patient's blood pressure 138/74, 140/70, and 160/85. Intake output not documented. GENERAL: The patient is seen sitting up in the bed. HEENT: Head; normocephalic and atraumatic. HEENT examination shows pinkish conjunctivae. Anicteric sclerae. No oropharyngeal lesion. NECK: No neck rigidity. CHEST: Shows median sternotomy surgical scar. LUNGS: Show no audible crackle, rales or wheezing. CARDIOVASCULAR: S1 and S2, regular rhythm. Positive systolic murmur left sternal border, right second intercostal space, left second intercostal space. ABDOMEN: Soft. Positive bowel sounds. No palpable hepatosplenomegaly. GENITALIA: Male. RECTAL: Deferred. EXTREMITIES: Show no pitting edema. No calf tenderness. No Homans' sign. No swelling. MUSCULOSKELETAL: As per the body mass index. NEUROLOGIC: The patient is alert, awake, responsive, and follows command. Moves upper and lower extremity without assistance. Gait examination is not tested. DIAGNOSTIC DATA: From 10/27/2018 were reviewed. The patient's renal function is almost normalized. Hemoglobin/hematocrit is around 10 g . The patient's cardiac catheterization report and echocardiogram report all reviewed. The patient's diagnostic test since hospitalization was reviewed and all the tests have been explained by the tile grader to the and the patient at length and all questions concerned answered. FINAL IMPRESSION, PLAN, AND DISCHARGE DIAGNOSES: 1. Severe symptomatic anemia with symptoms of chest pain and shortness of breath and fatigue. 2. Nxdyxo-[id number] aortic stenosis. 3. Right-sided diastolic congestive heart failure with elevated ProBNP. 4. Severe pulmonary hypertension and severe tricuspid regurgitation. 5. [id number] aortic stenosis. 6. Coronary artery disease, coronary artery bypass graft. 7. Hypothyroidism. 8. Hypertension. 9. Status post acute kidney injury (resolved). 10. Hyperlipidemia. 11. Normocytic anemia. 12. Status post packed red blood cell transfusion x3. 13. Esophageal candidiasis with patchy plaques. 14. Deconditioning. 15. Gait dysfunction. Plan at this time, the patient is to be discharged after cleared by Cardiology. Discharge follow up with the patient's primary care physician, medical doctor. The patient's discharge follow up with Dr. Gagnon for elective scheduling of TAVR and discharge follow up with ARRON Lewis for followup of the endoscopy report. Discharge medications as per the updated ambulatory orders. The patient's discharge medications as per revised and updated ambulatory orders. The patient's few of the medications were discontinued during this hospitalization and the patient was advised to stop those medication and take medications as per the new prescriptions and the new ambulatory orders. Time spent in the discharge process more than 45 minutes. Dictated and electronically signed, not read. Surinder Han MD
== END 2018-10-27 15:29 | disposition home or self-care (01) | DRG 287 ==
LOC: ED 12:46 → ERH 16:30 → 2RSO 23:05
PROVIDERS: ADMIT Internal Medicine; ATTEND Internal Medicine
PROC: 30233N1 Transfusion of Nonautologous Red Blood Cells into Peripheral Vein, Percutaneous Approach (ICD-10-PCS; 2018-10-21)
PROC: 0DD28ZX Extraction of Middle Esophagus, Via Natural or Artificial Opening Endoscopic, Diagnostic (ICD-10-PCS; 2018-10-25)
PROC: 4A023N8 Measurement of Cardiac Sampling and Pressure, Bilateral, Percutaneous Approach (ICD-10-PCS; principal; 2018-10-26)
PROC: B211YZZ Fluoroscopy of Multiple Coronary Arteries using Other Contrast (ICD-10-PCS; 2018-10-26)
PROC: B212YZZ Fluoroscopy of Single Coronary Artery Bypass Graft using Other Contrast (ICD-10-PCS; 2018-10-26)
DX: I25.110 Atherosclerotic heart disease of native coronary artery with unstable angina pectoris (principal); K92.2 Gastrointestinal hemorrhage, unspecified; D62 Acute posthemorrhagic anemia; I08.3 Combined rheumatic disorders of mitral, aortic and tricuspid valves; N17.9 Acute kidney failure, unspecified; I13.0 Hypertensive heart and chronic kidney disease with heart failure and stage 1 through stage 4 chronic kidney disease, or unspecified chronic kidney disease; I50.32 Chronic diastolic (congestive) heart failure; B37.81 Candidal esophagitis; N40.0 Benign prostatic hyperplasia without lower urinary tract symptoms; N18.3 Chronic kidney disease, stage 3 (moderate); E03.9 Hypothyroidism, unspecified; D63.1 Anemia in chronic kidney disease; E78.00 Pure hypercholesterolemia, unspecified; I27.20 Pulmonary hypertension, unspecified; D50.9 Iron deficiency anemia, unspecified; N28.1 Cyst of kidney, acquired; E55.9 Vitamin D deficiency, unspecified; E78.5 Hyperlipidemia, unspecified; K59.00 Constipation, unspecified; K31.7 Polyp of stomach and duodenum; Z95.1 Presence of aortocoronary bypass graft; Z79.82 Long term (current) use of aspirin; Z79.890 Hormone replacement therapy; Z79.899 Other long term (current) drug therapy; Z87.891 Personal history of nicotine dependence

== ENCOUNTER 2018-11-16 07:08 | Outpatient (CLI) | payer MEDICARE, OTHER | END 2018-11-16 07:09 | disposition home or self-care (01) | LOC: LAB 07:08 ==

== ENCOUNTER 2018-11-26 07:26 | Outpatient (CLI) | payer MEDICARE, OTHER | END 2018-11-26 07:27 | disposition home or self-care (01) | LOC: LAB 07:26 ==

== ENCOUNTER 2018-12-16 13:59 | Outpatient (CLI) | payer MEDICARE, OTHER | END 2018-12-16 14:00 | disposition home or self-care (01) | LOC: RAD 13:59 ==